=== PATIENT | female | born 1965 | race Caucasian/White ===

== ENCOUNTER 2020-03-15 09:46 | Outpatient (RCR) | payer MEDICARE, SELFPAY | END 2020-03-25 23:59 | disposition home or self-care (01) | LOC: SPT 09:46 | PROVIDERS: Referring Provider Nurse Practitioner Family; Visit Provider Nurse Practitioner Family | DX: Z47.1 Aftercare following joint replacement surgery (principal); Z96.651 Presence of right artificial knee joint | CPT/HCPCS: 97161 ==

== ENCOUNTER 2020-04-11 16:13 | Emergency (ER) | payer MEDICARE, SELFPAY ==
[2020-04-11 16:14] VITALS: BMI 29.7
[2020-04-11 16:20] VITALS: BP 142/92; PULSE 70; RESP 16; TEMP 36.6; O2SAT 96
--- NOTE | 2020-04-11 16:30 | W.ED.EXTPRO ---
HPI - Extremity Problem General: Chief complaint: Extremity Problem,Nontraumatic Stated complaint: SWELLING EDEMA LEFT LEG Time Seen by Provider: 04/11/20 16:24 History of Present Illness: HPI Narrative: 55-year-old female presents to the emergency room with complaint of leg swelling and pain in her left leg she did get a small abrasion on the leg that she has been keeping bandaged for a last several days that her tetanus is up-to-date is been putting some topical Neosporin on it. She states most of the pain is in her posterior calf and swelling she has had no significant recent immobilizations of any kind she is not had any chest pain tightness or shortness of breath. MD Complaint: extremity pain and extremity swelling Onset (ago): day(s) Pain Consistency: constant Location: left and lower extremity Quality: aching Radiation: none Relieving factors: nothing Exacerbating factors: nothing Associated symptoms: Reports no associated symptoms; Deny chest pain, fever(s), rash or short of breath Review of Systems Const: Denies: fever(s), chills, body aches, change in appetite, fatigue or malaise ENMT: Denies: throat pain, ear or mastoid pain, nasal discharge or nasal congestion Card: Denies: chest pain Resp: Denies: dyspnea, productive cough or non-productive cough GI: Denies: abdominal pain, nausea, vomiting, hematemesis, coffee ground emesis, diarrhea, constipation, bloating, hematochezia or melena : Denies: flank pain, difficulty voiding, dysuria, urinary frequency or urinary urgency Skin/Breast: Denies: rash or pruritus PFSH ED PFSH: Medical History Gastric perforation Hidradenitis suppurativa History of pacemaker Hypothyroidism Surgical History History of cardiac radiofrequency ablation 7x History of carpal tunnel release of both wrists History of colonoscopy History of decompression of both ulnar nerves History of esophagogastroduodenoscopy (EGD) History of gastric bypass History of hysterectomy History of knee replacement History of knee surgery 5 surgeries History of removal of cyst 3x on wrist History of tonsillectomy Family History Denies family history of Anesthesia complication Bleeding disorder Social History Smoking and tobacco status: former smoker Alcohol intake: current Alcohol intake frequency: holidays/special occasions only Alcohol type: wine Lives independently: Yes Marital status: Single Current occupational status: disabled History of recent travel: No Physical Exam Const: COMMON NORMALS: no acute distress GENERAL APPEARANCE: cooperative and comfortable ORIENTATION/CONSCIOUSNESS: Yes awake, Yes oriented to person, Yes oriented to place and Yes oriented to time HENMT: COMMON NORMALS: normocephalic, atraumatic, hearing grossly normal bilaterally and external ears normal HEAD & SCALP: normocephalic and atraumatic EXTERNAL EAR: Yes external ears normal Neck/C-Spine: COMMON NORMALS: full ROM Lymph: LYMPHATIC: no lymphadenopathy noted Resp: COMMON NORMALS: normal respiratory effort, No retractions, No use of accessory muscles and clear to auscultation bilaterally AUSCULTATION: clear to auscultation bilaterally Cardio: COMMON NORMALS: regular rate, regular rhythm and No murmurs present (Cardio) RATE: regular rate RHYTHM: regular rhythm GI: COMMON NORMALS: Soft to palpation and No hepatosplenomegaly present AUSCULTATION: Yes normoactive bowel sounds PALPATION: Yes Soft to palpation, No Tenderness to palpation present (GI), No Guarding due to palpation present (GI) and Yes No hepatosplenomegaly present Extremity: COMMON NORMALS: normal to inspection, capillary refill normal, no clubbing, cyanosis or edema and no calf tenderness NARRATIVE EXTREMITY EXAM: trace edema L lower extremity Neuro: SENSORIUM/ORIENTATION: Yes oriented to person, Yes oriented to place and Yes oriented to time Skin: COMMON NORMALS: no rashes or lesions noted GENERAL SKIN EXAM: no rashes or lesions noted Course Vital Signs: Vital signs: Vital Signs Temperature 97.8 F 04/11/20 16:20 Pulse Rate 69 04/11/20 18:30 Respiratory Rate 18 04/11/20 18:30 Blood Pressure 129/89 04/11/20 18:30 Pulse Oximetry 97 04/11/20 18:30 MDM - Extremity (Nontraumatic) MDM Narrative: Medical decision making narrative: Reviewed findings with the patient will discharge home with clindamycin she does have a few small abrasions on her leg follow-up with primary care doctor return if she has further problems reviewed the venous duplex which was negative. Discharge Plan Discharge Patient Disposition: Home, Self-Care Clinical Impression: Lower extremity edema, Lower leg pain Condition: Stable Prescriptions: New clindamycin HCl 300 mg capsule 300 mg PO Q6H 7 Days Qty: 28 RF: 0 No Action gabapentin 300 mg capsule 300 mg PO Q4H RF: 0 hydroxyzine pamoate 50 mg capsule 50 mg PO Q4H PRN (Reason: Anxiety) RF: 0 levothyroxine 75 mcg tablet 50 mcg PO DAILY RF: 0 cholecalciferol (vitamin D3) [Vitamin D3] 125 mcg (5,000 unit) tablet 125 mcg PO DAILY RF: 0 multivitamin [Daily Multi-Vitamin] Tablet 1 tab PO DAILY RF: 0 aspirin 81 mg tablet,delayed release (DR/EC) 81 mg PO BID RF: 0 clindamycin phosphate 1 % swab 1 applic TOPICAL DAILY Qty: 60 RF: 3 diazepam 10 mg Tablet 10 mg PO BID PRN (Reason: Anxiety) RF: 0 Discharge Orders: Discharge Order (Routine); Ordered 04/11/20 Ordered By: Anil Hackett Discharge Diet: Usual diet Discharge Activity: Resume usual activity Activity Restrictions/Additional Instructions: Follow-up with your doctor if symptoms worsen Discharge Date/Time: 04/11/20 18:31 Coding Level of Care 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
--- NOTE | 2020-04-11 16:56 | USCV_ITS ---
[place], [place] Age: 55 Gender: F : 1965 Exam Date: 04/11/2020 17:08 Ordering Phys: Anil Hackett DO Technologist: Mariana Spear Exam Location: [facility] – [place] Indication: LT LEG PAIN AND EDEMA HISTORY: Lower extremity pain. PROCEDURES: Venous duplex imaging was performed in only the left lower extremity. The following venous structures were evaluated: common femoral vein, profunda vein, proximal portion of the greater saphenous vein, superficial femoral vein, and the popliteal vein. In addition, the posterior tibial and peroneal trunk were evaluated. On the left side, the common femoral, superficial femoral, profunda femoral, popliteal, posterior tibial, greater saphenous veins, and the peroneal trunk were identified and interrogated in the standard fashion. These veins were found to be easily compressible with spontaneous blood flow. No evidence of insufficiency or thrombus noted. FINDINGS: Normal 2-D Doppler and augmentation and compressibility throughout the lower extremity venous structures. Additional imaging through the proximal calf veins also reveals no thrombus. Limited evaluation of the greater saphenous vein is patent with no thrombus.. The veins were found to be easily compressible with spontaneous blood flow. Non pulsatile flow pattern. CONCLUSIONS No evidence of DVT in the above-mentioned identifiable veins. Dr Zulema Ruiz MD [facility] (Electronically Signed) Final Date: 12 April 2020 09:03 S
[2020-04-11 18:30] VITALS: BP 129/89; PULSE 69; RESP 18; O2SAT 97
== END 2020-04-11 18:31 | disposition home or self-care (01) ==
PROVIDERS: Emergency Provider Family Medicine
DX: R60.0 Localized edema (principal); M79.662 Pain in left lower leg; Z79.82 Long term (current) use of aspirin; Z95.0 Presence of cardiac pacemaker; Z96.659 Presence of unspecified artificial knee joint; Z87.891 Personal history of nicotine dependence
CPT/HCPCS: 12345; 93971; 99281; 99282

== ENCOUNTER 2020-04-24 07:54 | Day surgery (SDC) | payer MEDICARE, SELFPAY ==
[2020-03-30 12:33] VITALS: BMI 29.7
[2020-04-23 12:32] VITALS: BMI 29.7
[2020-04-24 08:09] VITALS: BP 138/95; PULSE 78; RESP 18; TEMP 36.6; O2SAT 99
[2020-04-24] MEDS: sodium chloride 0.9% 1,000 ML 30 ML IV (08:24)
--- NOTE | 2020-04-24 08:25 | ANES.PREANE2 ---
Pre-Anesthetic Assessment Pre-Anesthetic Assessment: Height/Weight: Height 1.73 m Weight 88.904 kg Temp Pulse Resp BP Pulse Ox 97.9 F 78 18 138/95 99 04/24/20 08:09 04/24/20 08:09 04/24/20 08:09 04/24/20 08:09 04/24/20 08:09 Preop Diagnosis: Abdominal pain Proposed Procedure: Operation Date: 04/24/20 09:15 Proposed Procedures s EGD 88733 51681 R10.9(Not Applicable) - Sinan Duenas MD p Colonoscopy 07742 R10.9(Not Applicable) - Sinan Duenas MD Familial anesthetic complications: None Was Beta Rohan taken within 24 hours: N/A Last intake: Intake Last Liquid Date 04/23/20 Last Liquid Time 22:00 Last Solid Date 04/22/20 Last Solid Time 18:00 Social: Social History: No alcohol and No tobacco Exam: Pre-Anes Outpt Exam: alert, oriented x 3, clear to auscultation bilaterally and regular rate & rhythm Airway: Cervical ROM: WNL MP: 4 Additional comments: front 2 are caps Pulmonary: Pulmonary: Asthma CV/HEM: Comments: pacemaker (PSVT); multiple ablations 100% dependent on her pacemaker, 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- Will have magnet applied if any electrocautery used : : None reported Hepatic: Hepatic: None reported GI: GI: None reported Metabolic: Metabolic: Thyroid Musc/skel: Musc/skel: None reported Neuropsych: Neuropsych: None reported Anesthetic Plan: ASA status: 3 Anesthesia: MAC Risk of > 500 ml blood loss (7ml/kg in children): No Meds/Allergies Current Medications: Current Medications Generic Name Dose Route Start Last Admin Trade Name Freq PRN Reason Stop Dose Admin Sodium Chloride 1,000 mls @ 30 ml s/hr 04/24/20 08:15 04/24/20 08:24 Sodium Chloride 0.9% IV 04/25/20 08:14 30 mls/hr .Q24H DEBORA Administration PFSH Anesthesia PFSH: Medical History (Updated 04/19/20 @ 00:01 by ) Gastric perforation Hidradenitis suppurativa History of pacemaker Hypothyroidism Surgical History History of cardiac radiofrequency ablation 7x History of carpal tunnel release of both wrists History of colonoscopy History of decompression of both ulnar nerves History of esophagogastroduodenoscopy (EGD) History of gastric bypass History of hysterectomy History of knee replacement History of knee surgery 5 surgeries History of removal of cyst 3x on wrist History of tonsillectomy Family History Denies family history of Anesthesia complication Bleeding disorder Social History Smoking and tobacco status: former smoker Alcohol intake: current Alcohol intake frequency: holidays/special occasions only Alcohol type: wine Lives independently: Yes Marital status: Single Current occupational status: disabled History of recent travel: No Data Anesthesia Cardiac Studies: No Data to Display
--- NOTE | 2020-04-24 09:44 | W.PM.OPSUD ---
Surgery/Procedure H&P Update DATE OF PROCEDURE: April 24, 2020 DATE H&P PERFORMED: 04/06/20 H&P UPDATE INFORMATION: I have reviewed H&P completed within last 30 days, I have examined patient prior to procedure and No changes to prior documentation PREOP DIAGNOSIS: Abdominal pain PLANNED PROCEDURE: Operation Date: 04/24/20 09:15 Proposed Procedures s EGD 26838 48045 R10.9(Not Applicable) - Sinan Duenas MD p Colonoscopy 04179 R10.9(Not Applicable) - Sinan Duenas MD
[2020-04-24 09:56] VITALS: BP 103/66; PULSE 72; RESP 16; TEMP 36.1; O2SAT 97
[2020-04-24 10:01] VITALS: BP 100/65; PULSE 78; RESP 17; TEMP 36.2; O2SAT 100
--- NOTE | 2020-04-24 10:05 | ANE.PACU2 ---
Inpatient post-anesthesia follow up: Airway intact: Yes Vital signs: Temperature 97.1 F Pulse Rate 78 Respiratory Rate 17 Blood Pressure 100/65 Pulse Oximetry 100 Oxygen Delivery Me thod Room Air Oxygen Flow Rate Fraction of Inspir ed Oxygen Hydration adequate: Yes Nausea and vomiting: No Pain level: 1 Mental status: Baseline
== END 2020-04-24 10:42 | disposition home or self-care (01) ==
PROVIDERS: PCP Family Medicine; Visit Provider Surgery
PROC: 0DJ08ZZ Inspection of Upper Intestinal Tract, Via Natural or Artificial Opening Endoscopic (ICD-10-PCS; CPT 43235; principal; 2020-04-24 09:15)
PROC: 0DJD8ZZ Inspection of Lower Intestinal Tract, Via Natural or Artificial Opening Endoscopic (ICD-10-PCS; CPT 45378; 2020-04-24 09:15)
DX: R10.13 Epigastric pain (principal); Z98.84 Bariatric surgery status; Z95.0 Presence of cardiac pacemaker; J45.909 Unspecified asthma, uncomplicated; E03.9 Hypothyroidism, unspecified; Z87.891 Personal history of nicotine dependence; Z79.82 Long term (current) use of aspirin
CPT/HCPCS: 12345; 43235; 45330; J2704; J7030

== ENCOUNTER 2020-04-25 09:09 | Day surgery (SDC) | payer MEDICARE, SELFPAY ==
[2020-04-24 11:07] VITALS: BMI 29.7
[2020-04-25 09:24] VITALS: BP 151/92; PULSE 69; RESP 18; TEMP 36.2; O2SAT 100
--- NOTE | 2020-04-25 09:33 | P.ANESUD_ITS ---
Pre-Anesthetic Update Pre-Anesthetic Assessment: Date of Surgery/Procedure: 04/25/20 Preop Ashia gnosis: Abdominal pain Proposed Procedure: Operation Date: 04/25/20 10:30 Proposed Procedures p Colonoscopy/99961 R10.9(Not Applicable) - Sinan Duenas MD Any changes to Pre-Anesthetic Assessment?: Yes Last Intake: npo > 8 hrs Exam: Pre-Anes Outpt Exam: alert, oriented x 3, clear to auscultation bilaterally and regular rate & rhythm Cardiac Studies: No Data to Display
[2020-04-25] MEDS: sodium chloride 0.9% 1,000 ML 30 ML IV (09:57)
--- NOTE | 2020-04-25 10:01 | W.PM.OPSUD ---
Surgery/Procedure H&P Update DATE OF PROCEDURE: April 25, 2020 DATE H&P PERFORMED: 04/24/20 H&P UPDATE INFORMATION: I have reviewed H&P completed within last 30 days, I have examined patient prior to procedure and No changes to prior documentation PREOP DIAGNOSIS: Abdominal pain PLANNED PROCEDURE: Operation Date: 04/25/20 10:30 Proposed Procedures p Colonoscopy/15104 R10.9(Not Applicable) - Sinan Duenas MD
[2020-04-25] MEDS: Fleet Enema 133 mL Enema PR (10:50)
[2020-04-25 11:55] VITALS: BP 115/64; PULSE 73; RESP 16; TEMP 36.3; O2SAT 100
--- NOTE | 2020-04-25 12:08 | ANE.PACU2 ---
Inpatient post-anesthesia follow up: Airway intact: Yes Vital signs: Temperature 97.4 F Pulse Rate 73 Respiratory Rate 16 Blood Pressure 115/64 Pulse Oximetry 100 Oxygen Delivery Me thod Nasal Cannula Oxygen Flow Rate 3 Fraction of Inspir ed Oxygen Hydration adequate: Yes Nausea and vomiting: No Mental status: Baseline
[2020-04-25 12:09] VITALS: BP 106/60; PULSE 72; RESP 18; O2SAT 98
== END 2020-04-25 12:25 | disposition home or self-care (01) ==
PROVIDERS: PCP Family Medicine; Visit Provider Surgery
PROC: 0DJD8ZZ Inspection of Lower Intestinal Tract, Via Natural or Artificial Opening Endoscopic (ICD-10-PCS; CPT 45378; principal; 2020-04-25 10:30)
DX: R10.9 Unspecified abdominal pain (principal); K64.8 Other hemorrhoids
CPT/HCPCS: 12345; 45378; G0121; J2704; J7030

== ENCOUNTER 2020-05-25 10:02 | Outpatient (CLI) | payer MEDICARE, SELFPAY ==
--- NOTE | 2020-05-25 10:17 | US_ITS ---
WS: [id number] INDICATION: Calf pain TECHNIQUE: Ultrasound soft tissue FINDINGS: Diffuse edema in the area of concern right calf. No cystic or solid lesions. No drainable f luid collections or abscess. US/US soft tissue/extremity [id number] IMPRESSION: No fluid collection or abscess
== END 2020-05-25 10:03 | disposition home or self-care (01) ==
LOC: US 10:03
PROVIDERS: Visit Provider Surgery
DX: M79.661 Pain in right lower leg (principal); R60.0 Localized edema
CPT/HCPCS: 76882

== ENCOUNTER 2020-07-22 08:05 | Emergency (ER) | payer MEDICARE, SELFPAY ==
[2020-07-22 08:06] VITALS: BP 130/93; PULSE 81; RESP 18; O2SAT 95
[2020-07-22 08:12] VITALS: BP 147/81; PULSE 82; RESP 16; TEMP 36.7; O2SAT 97; BMI 30.1
--- NOTE | 2020-07-22 08:29 | PC.NURSE ---
Noted bruising behind right ear, right hand and wrist. states the wounds on right elbow are from walking past a door and caught arm on door frame. Onset on Thursday around 1600
--- NOTE | 2020-07-22 08:35 | CTR_ITS ---
PROCEDURE INFORMATION: Exam: CT Head Without Contrast Exam date and time: 07/22/2020 8:44 AM Age: 55 years old Clinical indication: Injury or trauma; Fall; Initial encounter; Blunt trauma (contusions or hematomas); Additional info: Fall, bruising right mastoid TECHNIQUE: Imaging protocol: Computed tomography of the head without contrast. Radiation optimization: All CT scans at this facility use at least one of these dose optimization techniques: automated exposure control; mA and/or kV adjustment per patient size (includes targeted exams where dose is matched to clinical indication); or iterative reconstruction. COMPARISON: No relevant prior studies available. RADIATION DOSE METRICS: Total DLP (mGy-cm): 760.09 FINDINGS: Brain: No acute post-traumatic brain injury. Symmetric prominence of the cortical and cerebellar sulci. Mild small vessel ischemic change. Cerebral ventricles: Normal configuration of the ventricles. Bones/joints: No acute calvarial injury. Paranasal sinuses: No sinus fluid. Mastoid air cells: No mastoid effusion. Soft tissues: Right occipital scalp hematoma. CT/CT head wo con* [id number] IMPRESSION: 1. Right occipital scalp hematoma. 2. No acute post-traumatic brain injury. Radiation Dose CTDIVOL = (mGy): DLP = 760.09 (mGy-cm)
--- NOTE | 2020-07-22 08:36 | CTR_ITS ---
PROCEDURE INFORMATION: Exam: CT Thoracic Spine Without Contrast Exam date and time: 07/22/2020 8:44 AM Age: 55 years old Clinical indication: Injury or trauma; Fall; Initial encounter; Blunt trauma (contusions or hematomas); Injury date: 07/21/20; Additional info: Fall, pain TECHNIQUE: Imaging protocol: Computed tomography images of the thoracic spine without contrast. Radiation optimization: All CT scans at this facility use at least one of these dose optimization techniques: automated exposure control; mA and/or kV adjustment per patient size (includes targeted exams where dose is matched to clinical indication); or iterative reconstruction. COMPARISON: No relevant prior studies available. RADIATION DOSE METRICS: Total DLP (mGy-cm): 2191.51 FINDINGS: The examination performed is mildly degraded by motion artifact. Tubes, catheters and devices: Pacemaker. Vertebrae: No acute bony injury or malalignment in the thoracic spine. Intraosseous hemangioma in the T9 vertebral body. Discs/Spinal canal/Neural foramina: Mild degenerative change . Soft tissues: Unremarkable appearance of the paraspinous soft tissues. Lungs: Interstitial prominence and chronic granulomatous disease. CT/CT thoracic spin wo con* [id number] IMPRESSION: 1. No acute bony injury or malalignment in the thoracic spine. 2. Additional findings as described above. Radiation Dose CTDIVOL = (mGy): DLP = 2191.51 (mGy-cm)
--- NOTE | 2020-07-22 08:36 | CTR_ITS ---
PROCEDURE INFORMATION: Exam: CT Lumbar Spine Without Contrast Exam date and time: 07/22/2020 8:44 AM Age: 55 years old Clinical indication: Injury or trauma; Fall; Initial encounter; Blunt trauma (contusions or hematomas); Injury date: 07/21/20; Additional info: Fall, pain TECHNIQUE: Imaging protocol: Computed tomography images of the lumbar spine without contrast. Radiation optimization: All CT scans at this facility use at least one of these dose optimization techniques: automated exposure control; mA and/or kV adjustment per patient size (includes targeted exams where dose is matched to clinical indication); or iterative reconstruction. COMPARISON: No relevant prior studies available. RADIATION DOSE METRICS: Total DLP (mGy-cm): 2185.47 FINDINGS: Vertebrae: Acute L1 compression fracture, without retropulsion. Intraosseous hemangiomas in the L2 and L5 vertebral bodies. Discs/Spinal canal/Neural foramina: Disc bulging and mild degenerative change. Soft tissues: unremarkable appearance of the paraspinous soft tissues. CT/CT lumbar spine wo con* [id number] IMPRESSION: Acute L1 compression fracture, without retropulsion. Radiation Dose CTDIVOL = (mGy): DLP = 2185.47 (mGy-cm)
--- NOTE | 2020-07-22 08:37 | W.ED.FALL ---
HPI - Fall General: Chief Complaint: Fall Stated Complaint: fall Time Seen by Provider: 07/22/20 08:29 History of Present Illness: HPI Narrative: Patient complains of a headache and scalp pain behind the right ear from a fall that happened on Thursday night. She fell off a barstool had positive loss of consciousness up to 5 minutes she said. She denies alcohol was involved. Patient also complains about lower back to mid thoracic pain. Says it hurts to bend twist get off a chair sitting in chair just hurts all the time separately and still. She denies any neurological manifestations presently. Denies any nausea and vomiting complaint: fall Onset (ago): day(s) Fall from: chair Fall witnessed: yes, by bystander Place fall occurred: other (Bar) Loss of consciousness: Minutes (5) Length of LOC: minutes(s) (5 she claims) Symptoms prior to fall: none Context: tripped/slipped Location of injury: head and back Severity scale (1-10): 4 Quality: aching Associated symptoms-after fall: Reports no associated symptoms and headache(s); Denies abdominal pain or chest pain Review of Systems Const: Denies: fever(s), chills or body aches Eyes: Denies: change in vision or blurry vision ENMT: Denies: throat pain or nasal congestion Card: Denies: chest pain or dyspnea on exertion Resp: Denies: dyspnea, productive cough or non-productive cough GI: Denies: abdominal pain, nausea or vomiting Musc: Reports: back pain (Patient complains about low back pain midthoracic pain with movement); Denies: extremity pain Skin/Breast: Reports: other (Bruising behind the ear right side says is very sore in that area); Denies: rash Neuro: Reports: headache(s) Psych: Denies: anxiety or depression Tj/Lymph: Denies: easy bruising PFS ED PFSH: Medical History (Updated 07/22/20 @ 10:12 by ROBBI Medina) Gastric perforation Gastritis Hidradenitis suppurativa History of pacemaker Hypothyroidism Surgical History History of cardiac radiofrequency ablation 7x History of carpal tunnel release of both wrists History of colonoscopy History of decompression of both ulnar nerves History of esophagogastroduodenoscopy (EGD) (04/24/20) History of gastric bypass History of hysterectomy History of knee replacement History of knee surgery 5 surgeries History of removal of cyst 3x on wrist History of tonsillectomy Status post colonoscopy (04/25/20) normal, repeat in 10 years Family History Denies family history of Anesthesia complication Bleeding disorder Social History Smoking and tobacco status: former smoker Alcohol intake: current Alcohol intake frequency: holidays/special occasions only Alcohol type: wine Lives independently: Yes Marital status: Single Current occupational status: disabled History of recent travel: No Physical Exam Const: COMMON NORMALS: no acute distress, average body habitus and patient oriented x3 HENMT: COMMON NORMALS: normocephalic and TM's normal bilaterally HEAD & SCALP: normal to inspection and normocephalic FACE & SINUS: normal facial exam TYMPANIC MEMBRANE: TM's normal bilaterally Eye: COMMON NORMALS: conjunctivae normal GENERAL EYE: appearance normal, both eyes and all related structures CONJUNCTIVA: Yes conjunctivae normal Neck/C-Spine: COMMON NORMALS: no JVD Chest: COMMONS NORMALS: normal inspection of the chest Resp: COMMON NORMALS: normal respiratory effort and clear to auscultation bilaterally AUSCULTATION: clear to auscultation bilaterally Cardio: COMMON NORMALS: no JVD, regular rate and regular rhythm RATE: regular rate RHYTHM: regular rhythm GI: COMMON NORMALS: Normal to inspection, nondistended, normoactive bowel sounds present Back/Pelvis: THORACIC SPINE/UPPER BACK: Yes pain with ROM and Yes thoracic spinal tenderness LUMBAR SPINE/LOWER BACK: Yes pain with ROM and Yes lumbar spinal tenderness Extremity: COMMON NORMALS: normal to inspection and full ROM Neuro: COMMON NORMALS: patient oriented x3 and CN's II-XII intact bilaterally Skin: OTHER: Tenderness behind the right ear with a large amount of bruising Course Vital Signs: Vital signs: Vital Signs Temperature 98.7 F 07/22/20 10:41 Pulse Rate 81 07/22/20 10:41 Respiratory Rate 18 07/22/20 10:41 Blood Pressure 160/108 07/22/20 10:41 Pulse Oximetry 97 07/22/20 10:41 MDM - Fall MDM Narrative: Medical decision making narrative: Discussed need to wear the brace. Patient can only take Demerol as far as pain medication due to allergies. Patient will follow-up [facility] to discuss treatment she did request some muscle relaxer to help with pain. Discharge Plan Discharge Patient Disposition: Home Clinical Impression: Compression fracture of lumbar vertebra Qualifiers: Encounter type: initial encounter Lumbar vertebra fracture level: L1 Qualified Code(s): S32.010A - Wedge compression fracture of first lumbar vertebra, initial encounter for closed fracture Hematoma of right parietal scalp Qualifiers: Encounter type: initial encounter Qualified Code(s): S00.03XA - Contusion of scalp, initial encounter Condition: Stable Prescriptions: New cyclobenzaprine 10 mg tablet 10 mg PO TID PRN (Reason: muscle spasm) Qty: 20 RF: 0 No Action gabapentin 300 mg capsule 300 mg PO Q4H RF: 0 hydroxyzine pamoate 50 mg capsule 50 mg PO Q4H PRN (Reason: Anxiety) RF: 0 levothyroxine 75 mcg tablet 50 mcg PO DAILY RF: 0 cholecalciferol (vitamin D3) [Vitamin D3] 125 mcg (5,000 unit) tablet 125 mcg PO DAILY RF: 0 multivitamin [Daily Multi-Vitamin] Tablet 1 tab PO DAILY RF: 0 aspirin 81 mg tablet,delayed release (DR/EC) 81 mg PO BID RF: 0 clindamycin phosphate 1 % swab 1 applic TOPICAL DAILY Qty: 60 RF: 3 famotidine 20 mg tablet 20 mg PO BID 90 Days Qty: 180 RF: 0 clindamycin phosphate [Cleocin T] 1 % gel 1 applic TOPICAL DAILY 30 Days Qty: 30 RF: 0 diazepam 10 mg Tablet 10 mg PO BID PRN (Reason: Anxiety) RF: 0 Discharge Orders: Discharge Order (Routine); Ordered 07/22/20 Ordered By: Bony Castorena Discharge Diet: Usual diet Discharge Activity: Limit activity as instructed Patient Instructions: Vertebral Compression Fracture (ED) Activity Restrictions/Additional Instructions: Follow-up with medical provider as directed. Take medications as prescribed. Return to the ER or your medical provider if condition worsens. Please read and understand discharge instructions. If any questions ask please. Wear brace until follow-up with [facility] should be contacting you with appointment for them. 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
[2020-07-22 09:10] VITALS: BP 144/96; PULSE 73; RESP 18; O2SAT 97
[2020-07-22 10:41] VITALS: BP 160/108; PULSE 81; RESP 18; TEMP 37.1; O2SAT 97
--- NOTE | 2020-07-24 09:46 | DCPLANNER ---
aerial planting and cultivation manager had message to refer patient to [facility] in [place]. aerial planting and cultivation manager faxed patients information to the clinic. aerial planting and cultivation manager will call for appointment information.
--- NOTE | 2020-07-26 11:36 | DCPLANNER ---
manager music called [facility] was told that clinic did receive referral and the clinic is working on it.
--- NOTE | 2020-08-01 13:18 | DCPLANNER ---
Patient has a follow up appointment scheduled for July at 10:[address] Rojas. Patient is aware of appointment.
--- NOTE | 2020-08-23 10:55 | DCPLANNER ---
Patient had an appointment scheduled for 08.09.[address] Rojas - appointment was cancelled.
== END 2020-07-22 10:45 | disposition home or self-care (01) ==
PROVIDERS: Emergency Provider Nurse Practitioner Family
DX: S00.03XA Contusion of scalp, initial encounter (principal); S32.010A Wedge compression fracture of first lumbar vertebra, initial encounter for closed fracture; Z79.82 Long term (current) use of aspirin; Z95.0 Presence of cardiac pacemaker; Z87.891 Personal history of nicotine dependence; W07.XXXA Fall from chair, initial encounter
CPT/HCPCS: 12345; 70450; 72128; 72131; 97760; 99281; 99283; L0460

== ENCOUNTER 2021-01-10 13:52 | Outpatient (CLI) | payer MEDICARE, SELFPAY ==
--- NOTE | 2021-01-10 14:00 | MM_ITS ---
WS: [id number] BILATERAL DIGITAL SCREENING MAMMOGRAPHY WITH CAD CLINICAL INFORMATION: SCREENING HISTORY: Screening mammogram. No current complaints. COMPARISON: October 14, 2017 TECHNIQUE: Bilateral CC and MLO views. FINDINGS: Scattered fibroglandular densities bilaterally. Ovoid asymmetric density subareolar left breast best seen on the cc view. This is new from previous. Recommend left breast diagnostic mammography and ultr asound. Right breast is unremarkable and unchanged. MM/[place] [id number] IMPRESSION: BI-RADS: 0-Incomplete: Need additional imaging evaluation FOLLOW UP: Need Additional Imaging RECOMMEND LEFT BREAST DIAGNOSTIC MAMMOGRAPHY AND ULTRASOUND..
== END 2021-01-10 13:53 | disposition home or self-care (01) ==
LOC: RADSHAW 13:54
PROVIDERS: PCP Nurse Practitioner Family; Visit Provider Nurse Practitioner Family
DX: Z12.31 Encounter for screening mammogram for malignant neoplasm of breast (principal); N64.89 Other specified disorders of breast
CPT/HCPCS: 77067

== ENCOUNTER 2021-01-30 14:22 | Outpatient (CLI) | payer MEDICARE, SELFPAY ==
--- NOTE | 2021-01-30 14:30 | US_ITS ---
WS: [id number] LEFT DIGITAL MAMMOGRAPHY WITH CAD CLINICAL INFORMATION: ABNORMAL MAMMOGRAM COMPARISON: January 10, 2021 TECHNIQUE: 2 views of the left breast were obtained. FINDINGS: Scattered fibroglandular densities of the left breast. Previously described 9 millimeter subareolar d ensity not as well seen on today's study. Ultrasound is pending. ULTRASOUND BREAST LEFT TECHNIQUE: Ultrasound left breast focused area of concern. CLINICAL INFORMATION: ABNORMAL MAMMOGRAM COMPARISON: None. FINDINGS: Ultrasound left breast at the nipple. Mild ductal ectasia. No suspicious lesions. No cystic or solid lesions to target for biopsy. Recommend return to annual screening mammography. US/US breast LT limited* [id number] IMPRESSION: BI-RADS: 2-Benign FOLLOW UP: 1 Year Follow-up Recommend return to annual screening mammography.
== END 2021-01-30 14:23 | disposition home or self-care (01) ==
LOC: RADSHAW 14:27
PROVIDERS: PCP Nurse Practitioner Family; Visit Provider Nurse Practitioner Family
DX: R92.8 Other abnormal and inconclusive findings on diagnostic imaging of breast (principal); N60.42 Mammary duct ectasia of left breast
CPT/HCPCS: 76642; 77065

== ENCOUNTER → 2021-10-21 13:48 | Outpatient (BNVA) | payer MEDICARE, SELFPAY | PROVIDERS: PCP Nurse Practitioner Family; Visit Provider Nurse Practitioner Family | DX: Z20.822 Contact with and (suspected) exposure to COVID-19 (principal); J06.9 Acute upper respiratory infection, unspecified | CPT/HCPCS: 87635 ==

== ENCOUNTER 2022-06-24 11:19 | Emergency (ER) | payer MEDICARE, SELFPAY ==
[2022-06-24 11:33] VITALS: BP 113/79; PULSE 90; RESP 16; TEMP 36.6; O2SAT 100; BMI 25.5
[2022-06-24 13:39] LABS: Basophils # 0.1 10^3/uL (0.0-0.1); Basophils % 0.5 %; Eosinophils # 0.1 10^3/uL (0.0-0.8); Eosinophils % 1.4 %; Hematocrit 41.3 % (37.0-47.0); Hemoglobin 13.6 g/dL (11.5-15.3); Lymphocytes # 1.6 10^3/uL (0.8-4.8); Mean Corpuscular HGB Conc 32.9 g/dL (30.0-36.0); Mean Corpuscular Hemoglobin 35.1 pg (28.0-34.0); Mean Corpuscular Volume 106.7 fl (81-99); Mean Platelet Volume 11.3 fL (7.4-10.4); Monocytes # 0.6 10^3/uL (0.2-0.9); Monocytes % 6.2 %; Neutrophils # 6.93 10^3/uL (1.8-7.7); Neutrophils % 74.5 %; Nucleated Red Blood Cells % 0 %; Platelet Count 100 10^3/cmm (130-400); Red Blood Count 3.87 10^6/uL (4.1-5.3); Red Cell Distribution Width 13.1 % (12.1-15.1); White Blood Count 9.3 10^3/uL (4.0-10.0)
[2022-06-24 13:58] LABS: Alanine Aminotransferase 33 U/L (0-33); Alkaline Phosphatase 149 U/L (35-105); Anion Gap 12.7 (5-19); Aspartate Amino Transferase 52 U/L (0-32); Blood Urea Nitrogen 4 mg/dL (6-20); Calcium 8.3 mg/dL (8.5-10.5); Carbon Dioxide 25 mmol/L (22-29); Chloride 103 mmol/L (98-107); Globulin 3.1 g/dL (1.3-4.6); Glomerular Filtration Rate 74.2 mL/min (90-130); Glucose 90 mg/dL (65-115); Lipase 10 U/L (13-60); Osmolality Calculated 280 mOsm/kg (285-295); Potassium 3.7 mmol/L (3.5-5.1); Sodium 137 mmol/L (136-145); Total Bilirubin 0.8 mg/dL (0.15-1.2); Total Protein 6.1 g/dL (6.6-8.7)
[2022-06-24] MEDS: ondansetron 2 mg/ML SDV 2 mL 4 MG IVP (14:01)
[2022-06-24] MEDS: sodium chloride 0.9% 1,000 ML 999 ML IV ×2 (14:03→16:00)
--- NOTE | 2022-06-24 14:06 | ED_ITS ---
HPI - Nausea/Vomiting/Diarrhea General: Chief complaint: Nausea/Vomiting/Diarrhea Stated complaint: N/V/D/weakness Time Seen by Provider: 06/24/22 13:31 Source: patient Mode of arrival: EMS History of Present Illness: 57-year-old female presents emergency room with complaints of nausea vomiting and generalized weakness that began this morning. Patient has had similar symptoms in the past she is. He had a gastric bypass. She also recently was diagnosed with a DVT and was started on Xarelto she stopped taking it because it caused her to have some bloody vomitus she stopped it a few days ago has not told the primary care doctor about it. The episode of bloody vomitus was early on in the course of the Xarelto over a month ago. She denies any chest pain is complaining some vague abdominal pain but nothing specific denies dysuria urgency or frequency no hematochezia or melena no coffee-ground emesis she has not had any bloody emesis today. She denies any dysuria urgency frequency or hematuria. MD elicited complaint: nausea and vomiting Pertinent past history: abdominal surgery (Gastric bypass) Onset (ago): hour(s) Description of vomiting: food contents and bilious Associated nausea: Yes Severity: mild Quality: cramping Exacerbating factors: none Relieving factors: none Associated symtoms: Reports nausea; Denies altered mental status, anxiety, bloating, change in vision, chest pain, cough, diaphoresis, decreased urine output, dizziness, dysuria, epistaxis, fatigue, fecal incontinence, fevers/chills, headache(s), anorexia, malaise, myalgias, numbness, palpitations, rash, short of breath, syncope, tenesmus, tinnitus or weakness Review of Systems Const: Denies: fever(s), chills, fatigue, malaise or diaphoresis Eyes: Denies: change in vision ENMT: Denies: tinnitus or epistaxis Card: Denies: chest pain, palpitations or syncope Resp: Denies: dyspnea, productive cough or non-productive cough GI: Reports: abdominal pain, nausea and vomiting; Denies: bloating or fecal incontinence : Denies: dysuria Skin/Breast: Denies: rash or pruritus Neuro: Denies: headache(s) or dizziness Psych: Denies: anxiety PFSH ED PFSH: Medical History Gastric perforation Gastritis Hidradenitis suppurativa History of pacemaker Hypothyroidism Surgical History History of cardiac radiofrequency ablation 7x History of carpal tunnel release of both wrists History of colonoscopy History of decompression of both ulnar nerves History of esophagogastroduodenoscopy (EGD) (04/24/20) History of gastric bypass History of hysterectomy History of knee replacement History of knee surgery 5 surgeries History of removal of cyst 3x on wrist History of tonsillectomy Status post colonoscopy (04/25/20) normal, repeat in 10 years Family History Denies family history of Anesthesia complication Bleeding disorder Social History Smoking and tobacco status: former smoker Alcohol intake: current Alcohol intake frequency: holidays/special occasions only Alcohol type: wine Lives independently: Yes Marital status: Single Current occupational status: disabled History of recent travel: No Physical Exam Const: EXAM LIMITATIONS: no altered mental status Course Vital Signs: Vital signs: Vital Signs Temperature 97.8 F 06/24/22 11:33 Pulse Rate 80 06/24/22 18:33 Respiratory Rate 15 06/24/22 18:33 Blood Pressure 121/78 06/24/22 18:33 Pulse Oximetry 97 06/24/22 18:33 Oxygen Delivery Me thod 06/24/22 11:33 MDM - Nausea/Vomiting/Diarrhea Medical Decision Making Hemoglobin stable. She has not been having any further bloody emesis this is a month ago I did encourage her to check with her doctor about resuming the Xarelto is concerning that she has been off of it. She has a colitis on the CT we will start her on Cipro and metronidazole. Clear liquid diet for 24 to 48 hours and advance as tolerated return if has problems. Medical Records I reviewed the patient's medical records. Lab Data I reviewed the patient's lab results. : 06/24/22 13:27 06/24/22 13:27 Radiology Impressions Abdomen/Pelvis CT 06/24/22 14:59 IMPRESSION: 1. Submucosal edema throughout the RIGHT colon and hepatic flexure and again within the distal colon. Consider infectious etiologies such as pseudomembranous colitis. Less likely ischemic disease. 2. No GI tract obstruction. 3. Cholelithiasis within a contracted gallbladder. Laboratory Results WBC 9.3 10^3/uL (4.0-10.0) 06/24/22 13:27 RBC 3.87 10^6/uL (4.1-5.3) L 06/24/22 13:27 Hgb 13.6 g/dL (11.5-15.3) 06/24/22 13:27 Hct 41.3 % (37.0-47.0) 06/24/22 13:27 MCV 106.7 fl (81-99) H 06/24/22 13:27 MCH 35.1 pg (28.0-34.0) H 06/24/22 13:27 MCHC 32.9 g/dL (30.0-36.0) 06/24/22 13:27 RDW 13.1 % (12.1-15.1) 06/24/22 13:27 Plt Count 100 10^3/cmm (130-400) L 06/24/22 13:27 MPV 11.3 fL (7.4-10.4) H 06/24/22 13:27 Neut % (Auto) 74.5 % 06/24/22 13:27 Lymph % (Auto) 17.0 % 06/24/22 13:27 [place] % (Auto) 6.2 % 06/24/22 13:27 Eos % (Auto) 1.4 % 06/24/22 13:27 Baso % (Auto) 0.5 % 06/24/22 13:27 Neut # (Auto) 6.93 10^3/uL (1.8-7.7) 06/24/22 13:27 Lymph # (Auto) 1.6 10^3/uL (0.8-4.8) 06/24/22 13:27 [place] # (Auto) 0.6 10^3/uL (0.2-0.9) 06/24/22 13:27 Eos # (Auto) 0.1 10^3/uL (0.0-0.8) 06/24/22 13:27 Baso # (Auto) 0.1 10^3/uL (0.0-0.1) 06/24/22 13:27 Nucleated RBC % (auto) 0 % 06/24/22 13:27 Nucleated RBCs # 0.0 /100WBC 06/24/22 13:27 Sodium 137 mmol/L (136-145) 06/24/22 13:27 Potassium 3.7 mmol/L (3.5-5.1) 06/24/22 13:27 Chloride 103 mmol/L (98-107) 06/24/22 13:27 Carbon Dioxide 25 mmol/L (22-29) 06/24/22 13:27 Anion Gap 12.7 (5-19) 06/24/22 13:27 BUN 4 mg/dL (6-20) L 06/24/22 13:27 Creatinine 0.8 mg/dL (0.5-0.9) 06/24/22 13:27 GFR Calculation 74.2 mL/min (90-130) L 06/24/22 13:27 Glucose 90 mg/dL (65-115) 06/24/22 13:27 Calculated Osmolality 280 mOsm/kg (285-295) L 06/24/22 13:27 Calcium 8.3 mg/dL (8.5-10.5) L 06/24/22 13:27 Total Bilirubin 0.8 mg/dL (0.15-1.2) 06/24/22 13:27 AST 52 U/L (0-32) H 06/24/22 13:27 ALT 33 U/L (0-33) 06/24/22 13:27 Alkaline Phosphatase 149 U/L (35-105) H 06/24/22 13:27 Total Protein 6.1 g/dL (6.6-8.7) L 06/24/22 13:27 Albumin 3.0 g/dL (3.5-5.2) L 06/24/22 13:27 Globulin 3.1 g/dL (1.3-4.6) 06/24/22 13:27 Lipase 10 U/L (13-60) L 06/24/22 13:27 Discharge Plan Discharge Patient Disposition: Home Clinical Impression: Colitis Condition: Stable Prescriptions: New Cipro 500 mg tablet 500 mg PO BID Qty: 20 0RF ondansetron HCl 4 mg tablet 4 mg PO Q6H PRN (Reason: nausea and vomiting) Qty: 20 0RF No Action gabapentin 300 mg capsule 300 mg PO Q4H hydroxyzine pamoate 50 mg capsule 50 mg PO Q4H PRN (Reason: Anxiety) levothyroxine 50 mcg tablet 50 mcg PO QAM Humira(CF) Pen 80 mg/0.8 mL Pen Injector Kit See Rx Instructions .ROUTE .COMPLEX Rx Instructions: 160 mg subcutaneously starting dose 06/05/22 then 80mg on day 15 (06/20/22) then every week there after albuterol sulfate 90 mcg/actuation Hfa Aerosol Inhaler 2 puff INHALATION QID PRN (Reason: Shortness Of Breath) Eliquis 2.5 mg Tablet 2.5 mg PO BID Discharge Orders: Discharge ED (Routine); Ordered 06/24/22 Ordered By: Anil Hackett Referrals: Amita Hartley FNP [Primary Care Provider] - Discharge Diet: Clear Liquid Discharge Activity: Increase activity as tolerated Patient Instructions: Opioid Safety Activity Restrictions/Additional Instructions: Clear liquid diet for 24 to 48 hours and advance as tolerated. Coding Level of Care Code ED Director Digital Catalogue for [employer] Fwsadie Exam Problem Focused
--- NOTE | 2022-06-24 14:14 | PC.PHAR ---
Addendum entered by Mine Somers 06/24/22 14:24: pt has rx for hydrocortisone cream states it doesnt work and that she didnt bulk picker and has a rx she hasnt gotten because insurance wouldnt pay for hydrocortisone 25mg suppository Original Note: pt states she takes care of her own medications-pt states she stop taking eliquis 2 days ago-pt states she gets samples from her drs office-pt states she was on xarelto 20mg qpm filled 05/07/22 90d/s pt states she had a reaction and is now on eliquis 2.5mg bid-
--- NOTE | 2022-06-24 14:59 | CT_ITS ---
WS: [id number] CT ABDOMEN AND PELVIS WITH CONTRAST HISTORY: Abdominal pain, nausea, vomiting and diarrhea. Weakness. TECHNIQUE: Imaging performed of the abdomen and pelvis with IV contrast. Single phase imaging of the abdomen. Coronal and sagittal reformats are submitted. All CT scans at [facility] use at [address] one of these dose optimization techniques: automated exposure control; mA and/or kV adjustment per patient size (includes targeted exams where dose is matched to clinical indication); or iterative re construction. IV CONTRAST: Omnipaque 350; 80 mL IV. Oral contrast: No DLP: 563.74 mGy.cm COMPARISON: 07/12/2018 Lower thorax: Benign granuloma RIGHT lower lobe. Cardiac pacer wires RIGHT heart. No hiatal hernia. Liver/biliary system: Normal size with no intrahepatic dilatation. Gallbladder: Contracted gallbladder with stones. No bile duct dilatation. Pancreas: Normal size pancreas and pancreatic duct. No adjacent inflammation. Spleen: Normal size spleen. No mass or infarct. Adrenal glands: Normal. Right kidney: Normal. Left kidney: Normal. Aorta: Mild atherosclerosis with no aneurysm. Lymphadenopathy: None. Free fluid: None. GI tract: Nondistended stomach. No small bowel obstruction. There is mild submucosal edema throughout a large portion of the colon. Most significant involving the ascending colon through the splenic fle xure and towards the distal sigmoid. No significant diverticular disease. Abdominal wall: Unremarkable abdominal wall. No hernia. Pelvis: No free fluid or adenopathy within the pelvis. Nondistended urinary bladder. Mild perirectal soft tissue inflammation but no free fluid or abscess. Bones: L1 prior vertebroplasty. CT/CT abdomen pelvis w con* [id number] IMPRESSION: 1. Submucosal edema throughout the RIGHT colon and hepatic flexure and again w ithin the distal colon. Consider infectious etiologies such as pseudomembranous colitis. Less likely ischemic disease. 2. No GI tract obstruction. 3. Cholelithiasis within a contracted gallbladder.
[2022-06-24] MEDS: iohexol 350 mg/mL 100 mL Btl IV (15:40)
[2022-06-24 18:33] VITALS: BP 121/78; PULSE 80; RESP 15; O2SAT 97
== END 2022-06-24 18:34 | disposition home or self-care (01) ==
PROVIDERS: Emergency Medicine; Emergency Provider Family Medicine; PCP Nurse Practitioner Family
DX: K52.9 Noninfective gastroenteritis and colitis, unspecified (principal); Z79.01 Long term (current) use of anticoagulants; Z95.0 Presence of cardiac pacemaker; Z87.891 Personal history of nicotine dependence
CPT/HCPCS: 36415; 74177; 80053; 83690; 85025; 96361; 96374; 99285; J2405; J7030; Q9967

== ENCOUNTER 2022-08-06 13:50 | Inpatient (IN) | payer MEDICARE, SELFPAY ==
[2022-08-06] VITALS (7 sets, daily range): BP systolic 111–135; BP diastolic 72–99; PULSE 82–120; RESP 15–26; TEMP 36.4–36.7; O2SAT 97–100; BMI 24.3
--- NOTE | 2022-08-06 13:57 | CT_ITS ---
WS: [id number] CT HEAD NONCONTRAST HISTORY: ams TECHNIQUE: Contiguous axial imaging performed through the brain in 2.5 mm imaging. Bone and soft tiss ue windows. Sagittal and coronal reformats reviewed. All CT scans at [facility] use at least one of these dose optimization techniques: automated exposure control; mA and/or kV adjustment per pa tient size (includes targeted exams where dose is matched to clinical indication); or iterative recon struction. DLP: 1157.88 mGy.cm COMPARISON: None available. No acute intracranial hemorrhage, midline shift or mass effect. Very mild atrophy. No prior infarct. No midline shift. Only mild small vessel ischemic type changes. Ventricles: Normal size with no hydrocephalus. No inferior displacement of cerebellar tonsils. Paranasal sinuses: As visualized are clear. Mastoid air cells: Small amount of fluid in the mastoid tips bilaterally. Calvarium and scalp: Skull is intact with no soft tissue edema or swelling. CT/CT head wo con* [id number] IMPRESSION: 1. No acute intracranial hemorrhage or edema. 2. Mild cerebral atrophy. Similar to the prior study. 3. No skull fracture.
--- NOTE | 2022-08-06 13:57 | XR_ITS ---
WS: [id number] PORTABLE CHEST HISTORY: ams COMPARISON: 07/12/2018 Lungs are clear and well expanded. No pleural effusion or pneumothorax. Cardiac size: Normal. Mediastinum/Aorta: Normal mediastinum. No osseous abnormality seen. LEFT subclavian dual lead cardiac pacer. XR/XR chest 1V portable [id number] IMPRESSION: Unremarkable portable chest.
--- NOTE | 2022-08-06 13:58 | ECG_ITS ---
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 Measurements Intervals [place] Rate: 87 P: 165 MT: 185 QRS: -83 QRSD: 174 T: 87 QT: 477 QTc: 575 Interpretive Statements ELECTRONIC ATRIAL PACEMAKER ELECTRONIC VENTRICULAR PACEMAKER ABNORMAL RHYTHM ECG Compared to ECG 09/24/2019 16:36:08 No significant changes Electronically Signed On 08-07-2022 12:55:13 CDT by Georgia Conner M.D. [id number]
--- NOTE | 2022-08-06 14:00 | W.ED.NEUROSD ---
HPI - Neuro Symptoms/Deficit General: Chief Complaint: Neuro Symptoms/Deficit Stated Complaint: Neuro Time Seen by Provider: 08/06/22 13:52 History of Present Illness: Associated symptoms: Deny chest pain, nausea or vomiting Review of Systems Const: Denies: fever(s) or chills Eyes: Denies: change in vision ENMT: Denies: mouth pain Card: Denies: chest pain or palpitations Resp: Denies: dyspnea or non-productive cough GI: Denies: abdominal pain, nausea, vomiting or diarrhea : Denies: dysuria Musc: Denies: extremity pain Skin/Breast: Denies: rash or new lesions Neuro: Denies: weakness in extremities Psych: Reports: other (Normal mood) Tj/Lymph: Denies: easy bruising PFSH ED PFSH: Medical History Gastric perforation Gastritis Hidradenitis suppurativa History of pacemaker Hypothyroidism Surgical History History of cardiac radiofrequency ablation 7x History of carpal tunnel release of both wrists History of colonoscopy History of decompression of both ulnar nerves History of esophagogastroduodenoscopy (EGD) (04/24/20) History of gastric bypass History of hysterectomy History of knee replacement History of knee surgery 5 surgeries History of removal of cyst 3x on wrist History of tonsillectomy Status post colonoscopy (04/25/20) normal, repeat in 10 years Family History Denies family history of Anesthesia complication Bleeding disorder Social History Smoking and tobacco status: former smoker Alcohol intake: current Alcohol intake frequency: holidays/special occasions only Alcohol type: wine Lives independently: Yes Marital status: Single Current occupational status: disabled History of recent travel: No Physical Exam Const: COMMON NORMALS: alert HENMT: COMMON NORMALS: atraumatic HEAD & SCALP: atraumatic MOUTH: moist mucous membranes not abnormal Eye: COMMON NORMALS: EOMs intact bilaterally and conjunctivae normal CONJUNCTIVA: Yes conjunctivae normal Neck/C-Spine: COMMON NORMALS: full ROM and supple Resp: COMMON NORMALS: normal respiratory effort and clear to auscultation bilaterally AUSCULTATION: clear to auscultation bilaterally Cardio: COMMON NORMALS: regular rate RATE: regular rate GI: COMMON NORMALS: Soft to palpation and non-tender PALPATION: Yes Soft to palpation Extremity: COMMON NORMALS: full ROM Neuro: SENSORIUM/ORIENTATION: Yes alert MOTOR EXAM: No Abnormal motor strength present and Other motor observations present (no focal motor deficits) Psych: COMMON NORMALS: speech normal SPEECH: Yes normal speech MOOD & AFFECT: Yes euthymic mood Course Vital Signs: Vital signs: Vital Signs Temperature 97.6 F 08/06/22 13:51 Pulse Rate 120 H 08/06/22 13:51 Respiratory Rate 19 H 08/06/22 13:51 Blood Pressure 135/99 08/06/22 13:51 Pulse Oximetry 100 08/06/22 13:51 Oxygen Delivery Me thod 08/06/22 13:51 Discharge Plan Discharge Condition: Stable Prescriptions: No Action gabapentin 300 mg capsule 300 mg PO Q4H hydroxyzine pamoate 50 mg capsule 50 mg PO Q4H PRN (Reason: Anxiety) levothyroxine 50 mcg tablet 50 mcg PO QAM Humira(CF) Pen 80 mg/0.8 mL Pen Injector Kit See Rx Instructions .ROUTE .COMPLEX Rx Instructions: 160 mg subcutaneously starting dose 06/05/22 then 80mg on day 15 (06/20/22) then every week there after albuterol sulfate 90 mcg/actuation Hfa Aerosol Inhaler 2 puff INHALATION QID PRN (Reason: Shortness Of Breath) Eliquis 2.5 mg Tablet 2.5 mg PO BID Cipro 500 mg tablet 500 mg PO BID Qty: 20 0RF ondansetron HCl 4 mg tablet 4 mg PO Q6H PRN (Reason: nausea and vomiting) Qty: 20 0RF Referrals: Amita Hartley FNP [Primary Care Provider] - Coding Level of Care Code ED Associate Of Science In Nursing for Chg Fwd Exam Comprehensive
[2022-08-06 14:16] LABS: Basophils % 0.4 %; Eosinophils % 0.4 %; Hematocrit 34.2 % (37.0-47.0); Hemoglobin 11.3 g/dL (11.5-15.3); Lymphocytes # 1.4 10^3/uL (0.8-4.8); Lymphocytes % 13.9 %; Mean Corpuscular Hemoglobin 33.7 pg (28.0-34.0); Mean Corpuscular Volume 102.1 fl (81-99); Mean Platelet Volume 11.2 fL (7.4-10.4); Monocytes # 0.7 10^3/uL (0.2-0.9); Monocytes % 6.6 %; Neutrophils # 7.99 10^3/uL (1.8-7.7); Neutrophils % 78.3 %; Nucleated Red Blood Cells % 0.2 %; Platelet Count 78 10^3/cmm (130-400); Red Blood Count 3.35 10^6/uL (4.1-5.3); Red Cell Distribution Width 12.6 % (12.1-15.1); White Blood Count 10.2 10^3/uL (4.0-10.0)
[2022-08-06 14:30] LABS: Lactic Sepsis W/Reflex 2.4 mmol/L (0.5-2.2)
[2022-08-06 14:43] LABS: Troponin(5th) Baseline 12 ng/L (0-10)
--- NOTE | 2022-08-06 14:44 | ED_ITS ---
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 Per EMS, patient was found down on the ground by his sister earlier today. Clearly patient has been down for. By the time patient's sister found the patient, patient was slurring her words. EMS was called patient was brought to the emergency room. In route, patient's speech improved without any intervention. Think she was with within normal limit in route. Rest of vitals within normal limit. Patient does not remember what happened. Patient is AAO x2, answering most questions appropriately. Patient denies having any focal complaints other than left greater than right hip pain. Rest of hx of limited mental status. Onset: unknown Duration:ongoing Location:home Severity:moderate Review of Systems General: Reports: ROS unobtainable due to mental status Const: Reports: other (+generalized weakness) Musc: Reports: other (+b/l hip L > R) Neuro: Reports: other (+confusion) PFSH ED PFSH: Medical History Gastric perforation Gastritis Hidradenitis suppurativa History of pacemaker Hypothyroidism Surgical History History of cardiac radiofrequency ablation 7x History of carpal tunnel release of both wrists History of colonoscopy History of decompression of both ulnar nerves History of esophagogastroduodenoscopy (EGD) (04/24/20) History of gastric bypass History of hysterectomy History of knee replacement History of knee surgery 5 surgeries History of removal of cyst 3x on wrist History of tonsillectomy Status post colonoscopy (04/25/20) normal, repeat in 10 years Family History Denies family history of Anesthesia complication Bleeding disorder Social History Smoking and tobacco status: former smoker Alcohol intake: current Alcohol intake frequency: holidays/special occasions only Alcohol type: wine Lives independently: Yes Marital status: Single Current occupational status: disabled History of recent travel: No Physical Exam Const: COMMON NORMALS: alert HENMT: COMMON NORMALS: atraumatic HEAD & SCALP: atraumatic MOUTH: moist mucous membranes abnormal Eye: COMMON NORMALS: EOMs intact bilaterally and conjunctivae normal CONJUNCTIVA: Yes conjunctivae normal Neck/C-Spine: COMMON NORMALS: full ROM and supple Resp: COMMON NORMALS: normal respiratory effort and clear to auscultation bilaterally AUSCULTATION: clear to auscultation bilaterally Cardio: RATE: tachycardic GI: COMMON NORMALS: Soft to palpation and non-tender PALPATION: Yes Soft to palpation OTHER: No focal TTP. NO guarding rebound, guarding, rigidity. No CVA tenderness to percussion. Neg Smith/Neg McBurney's point tenderness, no suprabupic tenderness to palpation. Back/Pelvis: OTHER: + Pain with range of motion of the left hip and the right hip Extremity: COMMON NORMALS: full ROM Neuro: SENSORIUM/ORIENTATION: Yes alert MOTOR EXAM: No Abnormal motor strength present and Other motor observations present (no focal motor deficits) OTHER: AAOx2, confused, answering questions following commands, cranial nerves II thro ugh XII grossly intact, sensation and strength intact in all extremities Psych: COMMON NORMALS: speech normal SPEECH: Yes normal speech MOOD & AFFECT: Yes euthymic mood Course Vital Signs: Vital signs: Vital Signs Temperature 97.6 F 08/06/22 13:51 Pulse Rate 82 08/06/22 15:30 Respiratory Rate 21 H 08/06/22 15:30 Blood Pressure 111/82 08/06/22 15:30 Pulse Oximetry 100 08/06/22 15:30 Oxygen Delivery Me thod 08/06/22 15:30 [facility] - General Adult Medical Decision Making Patient is a 57-year-old female with a history of alcohol dependence, prior bowel perforation, hypothyroidism, pacemaker dependence presenting to the emergency room for evaluation of altered mental status and found down. On physical exam, patient is AAO x2, has dry mucous membranes mildly tachycardic to low 100s. EKG showed paced rhythm at heart rate over 100. Patient received IVF in the ER for x-ray of the pelvis negative for any acute finding. Her chest appears to be clear. CT head is negative for any brain bleed. Lab work-up showed patient had mild anion gap of 23. Glucose appears to be within normal limit. Hemoglobin of 11.3. Creatinine 1.1. UA pending at this time. Patient will admitted to the hospital for altered mental status work-up. CK pending. Disposition: admission Lab Data : 08/06/22 14:07 08/06/22 14:07 Radiology Impressions Chest X-Ray 08/06/22 13:57 IMPRESSION: Unremarkable portable chest. Head CT 08/06/22 13:57 IMPRESSION: 1. No acute intracranial hemorrhage or edema. 2. Mild cerebral atrophy. Similar to the prior study. 3. No skull fracture. Pelvis X-Ray 08/06/22 14:59 IMPRESSION: Negative pelvis. Laboratory Results WBC 10.2 10^3/uL (4.0-10.0) H 08/06/22 14:07 RBC 3.35 10^6/uL (4.1-5.3) L 08/06/22 14:07 Hgb 11.3 g/dL (11.5-15.3) L 08/06/22 14:07 Hct 34.2 % (37.0-47.0) L 08/06/22 14:07 MCV 102.1 fl (81-99) H 08/06/22 14:07 MCH 33.7 pg (28.0-34.0) 08/06/22 14:07 MCHC 33.0 g/dL (30.0-36.0) 08/06/22 14:07 RDW 12.6 % (12.1-15.1) 08/06/22 14:07 Plt Count 78 10^3/cmm (130-400) L 08/06/22 14:07 MPV 11.2 fL (7.4-10.4) H 08/06/22 14:07 Neut % (Auto) 78.3 % 08/06/22 14:07 Lymph % (Auto) 13.9 % 08/06/22 14:07 [place] % (Auto) 6.6 % 08/06/22 14:07 Eos % (Auto) 0.4 % 08/06/22 14:07 Baso % (Auto) 0.4 % 08/06/22 14:07 Neut # (Auto) 7.99 10^3/uL (1.8-7.7) H 08/06/22 14:07 Lymph # (Auto) 1.4 10^3/uL (0.8-4.8) 08/06/22 14:07 [place] # (Auto) 0.7 10^3/uL (0.2-0.9) 08/06/22 14:07 Eos # (Auto) 0.0 10^3/uL (0.0-0.8) 08/06/22 14:07 Baso # (Auto) 0.0 10^3/uL (0.0-0.1) 08/06/22 14:07 Nucleated RBC % (auto) 0.2 % 08/06/22 14:07 Nucleated RBCs # 0.0 /100WBC 08/06/22 14:07 Sodium 139 mmol/L (136-145) 08/06/22 14:07 Potassium 3.6 mmol/L (3.5-5.1) 08/06/22 14:07 Chloride 105 mmol/L (98-107) 08/06/22 14:07 Carbon Dioxide 14 mmol/L (22-29) L 08/06/22 14:07 Anion Gap 23.6 (5-19) H 08/06/22 14:07 BUN 22 mg/dL (6-20) H 08/06/22 14:07 Creatinine 1.1 mg/dL (0.5-0.9) H 08/06/22 14:07 GFR Calculation 51.4 mL/min (90-130) L 08/06/22 14:07 Glucose 104 mg/dL (65-115) 08/06/22 14:07 Calculated Osmolality 292 mOsm/kg (285-295) 08/06/22 14:07 Lactic Acid 2.4 mmol/L (0.5-2.2) H 08/06/22 14:07 Calcium 8.2 mg/dL (8.5-10.5) L 08/06/22 14:07 Total Bilirubin 1.2 mg/dL (0.15-1.2) 08/06/22 14:07 AST 28 U/L (0-32) 08/06/22 14:07 ALT 27 U/L (0-33) 08/06/22 14:07 Alkaline Phosphatase 81 U/L (35-105) 08/06/22 14:07 Creatine Kinase 67 U/L (26-192) 08/06/22 14:07 Troponin T Baseline 12 ng/L (0-10) H 08/06/22 14:07 Total Protein 6.0 g/dL (6.6-8.7) L 08/06/22 14:07 Albumin 3.0 g/dL (3.5-5.2) L 08/06/22 14:07 Globulin 3.0 g/dL (1.3-4.6) 08/06/22 14:07 Lipase 24 U/L (13-60) 08/06/22 14:07 TSH 2.75 uIU/mL (0.27-4.20) 08/06/22 14:07 Free T4 1.21 ng/dL (0.82-1.77) 08/06/22 14:07 Salicylates < 0.3 mg/dL (3-10) L 08/06/22 14:07 Acetaminophen < 5.0 ug/mL (10-30) L 08/06/22 14:07 Ethyl Alcohol < 10 mg/dL (0-10) 08/06/22 14:07 Imaging Data Other Imaging: Radiologist's impression: [address] [place] [address] CT Scan Report Signed Patient: Bekah Segovia Unit #: [id number] : 1965 Age/Sex: 57 / F ADM Date: 08/06/22 Loc: ER Room/Bed: Attending Dr: Ordering Provider/Ordering MD: Nathaniel Shrestha MD Date of Service: 08/06/22 Procedure(s): CT head wo con* [id number] Accession Number(s): [id number] Report Number: [id number] WS: [id number] CT HEAD NONCONTRAST HISTORY: ams TECHNIQUE: Contiguous axial imaging performed through the brain in 2.5 mm imaging. Bone and soft tissue windows. Sagittal and coronal reformats reviewed.? All CT scans at [facility] use at least one of these dose optimization techniques: automated exposure control; mA and/or kV adjustment per patient size (includes targeted exams where dose is matched to clinical indication); or iterative reconstruction. DLP: 1157.88 mGy.cm COMPARISON: None available. No acute intracranial hemorrhage, midline shift or mass effect. Very mild atrophy. No prior infarct. No midline shift. Only mild small vessel ischemic type changes. Ventricles:? Normal size with no hydrocephalus. No inferior displacement of cerebellar tonsils. Paranasal sinuses: As visualized are clear. Mastoid air cells: Small amount of fluid in the mastoid tips bilaterally. Calvarium and scalp: Skull is intact with no soft tissue edema or swelling. CT/CT head wo con* [id number] IMPRESSION: ? 1.? No acute intracranial hemorrhage or edema. 2.? Mild cerebral atrophy. Similar to the prior study. 3.? No skull fracture. ? Dictated By: Nubia Gray DO Signed By: Nubia Gray DO Signed Date/Time: 08/06/221448 DD/ [address] [place] [address] XRay Report Signed Patient: Bekah Segovia Unit #: [id number] : 1965 Age/Sex: 57 / F ADM Date: 08/06/22 Loc: ER Room/Bed: Attending Dr: Ordering Provider/Ordering MD: Nathaniel Shrestha MD Date of Service: 08/06/22 Procedure(s): XR chest 1V portable 44659 Accession Number(s): [id number] Report Number: [id number] WS: [id number] PORTABLE CHEST HISTORY: ams COMPARISON: 07/12/2018 Lungs are clear and well expanded. No pleural effusion or pneumothorax. Cardiac size: Normal. Mediastinum/Aorta: Normal mediastinum. No osseous abnormality seen. LEFT subclavian dual lead cardiac pacer. XR/XR chest 1V portable [id number] IMPRESSION: ? Unremarkable portable chest. ? ? ? Dictated By: Nubia Gray DO Signed By: Nubia Gray DO Signed Date/Time: 08/06/221449 DD/ [address] [place] [address] XRay Report Signed Patient: Bekah Segovia Unit #: [id number] : 1965 Age/Sex: 57 / F ADM Date: 08/06/22 Loc: ER Room/Bed: Attending Dr: Ordering Provider/Ordering MD: Nathaniel Shrestha MD Date of Service: 08/06/22 Procedure(s): XR pelvis 1-2V* 26175 Accession Number(s): [id number] Report Number: [id number] WS: [email or web address] PELVIS: AP VIEW SUBMITTED HISTORY: pelvic pain COMPARISON: None available. Bones and soft tissues of the pelvis are intact. No fracture or dislocation. XR/XR pelvis 1-2V* 01002 IMPRESSION: ? Negative pelvis. ? 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
[2022-08-06 14:50] LABS: Alanine Aminotransferase 27 U/L (0-33); Alkaline Phosphatase 81 U/L (35-105); Aspartate Amino Transferase 28 U/L (0-32); Blood Urea Nitrogen 22 mg/dL (6-20); Calcium 8.2 mg/dL (8.5-10.5); Carbon Dioxide 14 mmol/L (22-29); Chloride 105 mmol/L (98-107); Creatine Phosphokinase 67 U/L (26-192); Creatinine Clr Calc Pharmacy 60.7351; Free T4 Free Thyroxine 1.21 ng/dL (0.82-1.77); Glomerular Filtration Rate 51.4 mL/min (90-130); Glucose 104 mg/dL (65-115); Lipase 24 U/L (13-60); Osmolality Calculated 292 mOsm/kg (285-295); Sodium 139 mmol/L (136-145); Thyroid Stimulating Hormone 2.75 uIU/mL (0.27-4.20); Total Bilirubin 1.2 mg/dL (0.15-1.2)
[2022-08-06 14:59] LABS: Acetaminophen < 5.0 ug/mL (10-30); Salicylate < 0.3 mg/dL (3-10)
--- NOTE | 2022-08-06 14:59 | XR_ITS ---
WS: [id number] PELVIS: AP VIEW SUBMITTED HISTORY: pelvic pain COMPARISON: None available. Bones and soft tissues of the pelvis are intact. No fracture or dislocation. XR/XR pelvis 1-2V* 53552 IMPRESSION: Negative pelvis.
[2022-08-06 15:00] LABS: Anion Gap 23.6 (5-19); Potassium 3.6 mmol/L (3.5-5.1)
[2022-08-06] MEDS: cefepime 1,000 MG in sodium chloride 0.9% (plus) 50 ML 100 MG IV (15:04)
[2022-08-06] MEDS: sodium chloride 0.9% 500 ML IV (15:05)
[2022-08-06 15:30] LABS: Alcohol Level < 10 mg/dL (0-10)
[2022-08-06] MEDS: vancomycin 1,000 MG in sodium chloride 0.9% 250 ML 250 MG IV (15:39)
[2022-08-06 16:02] LABS: Reflex Lactate Order REFLEX LACTIC ORDERD
[2022-08-06 16:52] LABS: Lactic Acid level (Lactate) 2.4 mmol/L (0.5-2.2)
[2022-08-06 16:53] LABS: Ammonia 18 umol/L (11-51)
[2022-08-06 17:26] LABS: Troponin 5 2HR 11.95 ng/L (0-10)
[2022-08-06 17:29] LABS: Troponin 5 2HR Delta -0.05 ABS# (0-10)
[2022-08-06 17:58] LABS: Add Urine Microscopic? YES; Bilirubin Urine 2+ (Negative); Blood Urine 3+ (Negative); Glucose Urine UA Norm (Normal); Ketones Urine 1+ (Negative); Leukocyte Esterase Urine 1+ (Negative); Nitrate Urine Negative (Negative); Protein Urine 1+ (Negative); Urine Appearance Cloudy (CLEAR); Urine Color Yellow (Yellow); Urobilinogen Urine 4 mg/dL (Negative); pH Urine 6 (5-7)
[2022-08-06 18:01] LABS: Add Urine Culture? Yes; Bacteria Urine 4+ /hpf; RBC Urine 0-4 /hpf (0-2); Squamous Epithelial Cell Urine 0-4 /hpf (0-5); WBC Urine 0-4 /hpf (0-5)
--- NOTE | 2022-08-06 18:21 | CTR_ITS ---
PROCEDURE INFORMATION: Exam: CTA Abdomen and Pelvis With Contrast Exam date and time: 08/06/2022 8:23 PM Age: 57 years old Clinical indication: Abdominal pain; Localized; Left lower quadrant (llq); Additional info: Abdo pain, lactate elevation TECHNIQUE: Imaging protocol: Computed tomographic angiography of the abdomen and pelvis with contrast. 3D rendering (Not supervised by radiologist): MIP and/or 3D reconstructed images were created by the technologist. Radiation optimization: All CT scans at this facility use at least one of these dose optimization techniques: automated exposure control; mA and/or kV adjustment per patient size (includes targeted exams where dose is matched to clinical indication); or iterative reconstruction. Contrast material: OMNIPAQUE 350; Contrast volume: 95 ml; Contrast route: INTRAVENOUS (IV); COMPARISON: CT abdomen pelvis w con* [id number] 06/24/2022 3:40 PM RADIATION DOSE METRICS: Total DLP (mGy-cm): 713.27 FINDINGS: Tubes, catheters and devices: Pacemaker. Lungs: Left lower lobe atelectasis. Aorta: No aortic aneurysm. No aortic dissection. Celiac trunk and mesenteric arteries: Celiac artery proximally demonstrates 50% narrowing secondary to noncalcified atherosclerotic plaque with contrast seen distally. Renal arteries: Bilateral proximal renal artery approximately 50% narrowing secondary to calcified atherosclerotic plaque. Right iliac arteries: No occlusion or significant stenosis. Left iliac arteries: No occlusion or significant stenosis. Liver: No mass. Gallbladder and bile ducts: Cholelithiasis. Pancreas: Unremarkable. No mass. No ductal dilation. Spleen: Unremarkable. No splenomegaly. Adrenal glands: Unremarkable. No mass. Kidneys and ureters: Unremarkable. No solid mass. No hydronephrosis. Stomach and bowel: Prominent fluid in the small bowel along with some left colon wall thickening may reflect an enterocolitis in the appropriate clinical setting. Gastric surgical sutures. Appendix: No evidence of appendicitis. Intraperitoneal space: Unremarkable. No free air. No significant fluid collection. Lymph nodes: Unremarkable. No enlarged lymph nodes. Urinary bladder: Unremarkable. No mass. Reproductive: Unremarkable as visualized. Bones/joints: L1 vertebroplasty changes. L2 vertebral body hemangioma appears benign. Soft tissues: Unremarkable. CT/CT angio abdomen pelvis [id number] IMPRESSION: 1. Prominent fluid in the small bowel along with some left colon wall thickening may reflect an enterocolitis in the appropriate clinical setting. 2. Celiac artery proximally demonstrates 50% narrowing secondary to noncalcified atherosclerotic plaque with contrast seen distally. 3. Bilateral proximal renal artery approximately 50% narrowing secondary to calcified atherosclerotic plaque. 4. L1 vertebroplasty changes. 5. L2 vertebral body hemangioma appears benign. 6. Gastric surgical sutures. 7. Left lower lobe atelectasis. 8. Pacemaker. 9. Cholelithiasis.
--- NOTE | 2022-08-06 18:28 | PM.HP ---
Providers/Chief Complaint Primary Care Provider: Amita Hartley Chief Complaint: Neuro History of Present Illness 57-year-old lady was found down at home by her sister for an unknown period of time, may have been several days, very weak, confused, dry mucous membranes, disheveled, with slurred speech. In ER she is found mildly tachycardic, dehydrated, with unremarkable CT of the head, chest x-ray without suggestion of pneumonia or other acute abnormality, negative x-ray pelvis. Noted with anion gap, metabolic acidosis, creatinine 1.1, BUN 22, but normal CK, hemoglobin 11.3, platelets 78,000. Received IV fluid bolus and a dose of cefepime, vancomycin. She herself is not a good historian, unable to provide any useful history, give some circumstantial information but none relating to her presentation, like telling me she had had an endoscopy with Dr. Duenas previously. She is able to tell me the current year, is not able to tell me where she is. Her sister who is accompanying her at bedside provides additional history. She is very concerned that patient has had alcohol use disorder, drinking beer. She is concerned that she may be developing liver disease, or other complications. Patient provides very limited review of systems. Denies pain or discomfort. Denies any headache. During physical exam patient is noted having abdominal tenderness. During the interview and arthropod is also noted and collected in specimen which appears to be possibly a flea, although cannot exclude lice and isolation is requested. Review of Systems General: Reports: ROS unobtainable due to mental status (Limited ROS, denies pain or discomfort. Denies headache. ) Medications/Allergies Home Medications Medication Instructions Recorded Confirmed Last Taken Type gabapentin 300 mg capsule 300 mg PO Q4H PAIN 02/23/20 08/06/22 06/24/22 02:00 History hydroxyzine pamoate 50 mg capsule 50 mg PO Q4H PRN Anxiety 02/23/20 08/06/22 06/24/22 02:00 History adalimumab 80 mg/0.8 mL See Rx Instructions .Route .COMPLEX 06/24/22 08/06/22 06/20/22 History subcutaneous pen kit (Humira(CF) Pen) levothyroxine 50 mcg tablet 50 mcg PO QAM 06/24/22 08/06/22 06/24/22 History rivaroxaban 20 mg tablet (Xarelto) 20 mg PO QPM 08/06/22 08/06/22 Unknown History Allergies Allergy/AdvReac Type Severity Reaction Status Date / Time acetaminophen [From Tylenol] Allergy ALGY-Anaphy Verified 08/06/22 14:20 laxis codeine Allergy ALGY-Anaphy Verified 08/06/22 14:20 laxis fentanyl Allergy ALGY-Difficulty Verified 08/06/22 14:20 Breathing hydromorphone Allergy ALGY-Hives Verified 08/06/22 14:20 ibuprofen [From Advil] Allergy ALGY-Anaphy Verified 08/06/22 14:20 laxis morphine Allergy ADR-Halluci Verified 08/06/22 14:20 nating naproxen [From Aleve] Allergy ALGY-Anaphy Verified 08/06/22 14:20 laxis rivaroxaban [From Xarelto] Allergy ALGY-Rash,i Verified 08/06/22 14:20 tching, Sulfa (Sulfonamide Allergy ALGY-Bliste Verified 08/06/22 14:20 Antibiotics) r PFSH Acute PFSH: Medical History DVT (deep vein thrombosis) in Gastric perforation Gastritis Hidradenitis suppurativa History of pacemaker Hypothyroidism Surgical History History of cardiac radiofrequency ablation 7x History of carpal tunnel release of both wrists History of colonoscopy History of decompression of both ulnar nerves History of esophagogastroduodenoscopy (EGD) (04/24/20) History of gastric bypass History of hysterectomy History of knee replacement History of knee surgery 5 surgeries History of removal of cyst 3x on wrist History of tonsillectomy Status post colonoscopy (04/25/20) normal, repeat in 10 years Family History Denies family history of Anesthesia complication Bleeding disorder Social History Smoking and tobacco status: former smoker Alcohol intake: current Alcohol intake frequency: holidays/special occasions only Alcohol type: wine Lives independently: Yes Marital status: Single Current occupational status: disabled History of recent travel: No Vitals/I&O/Wt Last Vital Signs Temp 97.6 F 08/06/22 13:51 Pulse 103 H 08/06/22 16:55 Resp 26 H 08/06/22 16:55 BP 124/85 08/06/22 16:55 Pulse Ox 97 08/06/22 16:55 O2 Del Method 08/06/22 16:55 08/06/22 08/06/22 08/06/22 06:59 14:59 22:59 Intake Total 800 / 800 Balance 800 / 800 Weight last 48 hrs Weight 72.575 kg Physical Exam Const: COMMON NORMALS: alert; negative for patient oriented x3 EXAM LIMITATIONS: altered mental status GENERAL APPEARANCE: cooperative and disheveled ORIENTATION/CONSCIOUSNESS: Yes awake and Yes confused OTHER: Weak, mildly slurred speech HENMT: COMMON NORMALS: oropharynx normal HEAD & SCALP: other (Arthropod, possibly flea noted on right side of the scalp) MOUTH: other (Dry MM) Neck/C-Spine: COMMON NORMALS: no JVD Resp: COMMON NORMALS: normal respiratory effort and clear to auscultation bilaterally AUSCULTATION: clear to auscultation bilaterally Cardio: COMMON NORMALS: no JVD, regular rhythm, S1 normal heart sound present, S2 normal heart sound present and No murmurs present (Cardio) RHYTHM: regular rhythm HEART SOUNDS: S1 normal heart sound present and S2 normal heart sound present GI: COMMON NORMALS: Normal to inspection, nondistended, normoactive bowel sounds present and Soft to palpation PALPATION: Yes Soft to palpation and Yes Tenderness to palpation present (GI) Extremity: COMMON NORMALS: no joint enlargement and no pedal edema Neuro: COMMON NORMALS: moves all extremities; negative for patient oriented x3 SENSORIUM/ORIENTATION: Yes alert Skin: NARRATIVE SKIN EXAM: Some excoriations noted on lower extremities. Full skin exam not conducted at this time. Data : 08/06/22 14:07 08/06/22 14:07 Micro: Microbiology 08/06/22 14:09 Blood Culture - Preliminary Blood SPECIMEN COLLECTED A&P Assessment and plan (1) Acute encephalopathy: Acute metabolic encephalopathy suspect secondary to dehydration, although may have additional cause, possible withdrawal from EtOH as expressed concern for alcohol use disorder by his sister. Concern for possible liver disease, does have thrombocytopenia, although liver parameters otherwise appear unremarkable. Requested ammonia. He has history of hypothyroidism with recent changes in levothyroxine dose, TSH does appear to be normal, however. No obvious pneumonia on chest x-ray. Will check COVID-19 PCR due to generalized weakness. UA not suggestive of UTI. Does have some ketones in urine, suspected starvation ketosis. No history of diabetes. Glucose 104. Does have abdominal tenderness, lactic acidosis 2.4. Discussed with his sister, we will obtain CT angiogram abdomen pelvis for additional assessment. She did receive a dose of cefepime and vancomycin empirically. For now we will not resume antibiotics as she does not appear to have an obvious source of infection, does not appear to be in sepsis. Discussed with her sister and we may, however, may decide to resume antibiotics depending on additional findings. She denies ever taking Humira, her sister also denies her being on this medication. Humira seems to be listed on her home medication, although I do not see it on external prescription list. Possible alcohol withdrawal, add CIWA protocol, thiamine, folic acid, multivitamin. (2) Generalized weakness: With acute dehydration, and IV hydration, will additionally assess ammonia. COVID-19. CT abdomen pelvis as above. PT, OT assessment. Additional concern for possible alcohol withdrawal, with sinus tachycardia, confusion, supportive care for EtOH withdrawal. (3) Abdominal tenderness: Additional assessment with CT angiogram abdomen pelvis. (4) Lactic acidosis: Suspect secondary to severe dehydration, IV rehydration as above. Additional assessment with CT angiogram abdomen pelvis. (5) Dehydration: LR infusion (6) Alcohol use disorder: Chlordiazepoxide per CIWA protocol for withdrawal. Thiamine, folic acid, multivitamin. Once she is more coherent would benefit from additional discussion regarding concerns of alcohol use disorder. (7) Arthropod infestation: Requested identification, arthropod caught in specimen cup, appears likely flea, cannot exclude lice. Sister reports she has dogs at home. Contact isolation. Discussed with ER physician. (8) Thrombocytopenia: Not entirely clear cause at this time, but would suspect bone marrow suppression secondary to EtOH as per concerns above. Cannot exclude hypersplenism. Possibly other causes. Additional assessment with CT abdomen pelvis. Check LDH, haptoglobin, reticulocyte count. COVID-19. Reassess blood counts. Plan Remote history of DVT PPM History of gastric bypass History of gastric perforation Hidradenitis suppurativa Hypothyroidism Attestations Medical Necessity Statement*: Admission of over 2 midnights is anticipated versus management of acute encephalopathy, generalized weakness in a lady with concern for alcohol use disorder. Coding Level of Care Code Acute Trust Administrative Assistant for g Fwd Diagnoses Acute encephalopathy G93.40 Generalized weakness R53.1 Abdominal tenderness R10.819 Lactic acidosis E87.20 Dehydration E86.0 Alcohol use disorder Arthropod infestation B88.2 Thrombocytopenia D69.6
[2022-08-06] MEDS: lactated ringers 1,000 ML 75 ML IV (18:41)
[2022-08-06 18:44] LABS: INR 1.13 (0.8-1.2)
--- NOTE | 2022-08-06 19:58 | ECG_ITS ---
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 Measurements Intervals [place] Rate: 96 P: 259 OK: 178 QRS: -85 QRSD: 177 T: 94 QT: 434 QTc: 551 Interpretive Statements ELECTRONIC ATRIAL PACEMAKER ELECTRONIC VENTRICULAR PACEMAKER ABNORMAL RHYTHM ECG Compared to ECG 08/06/2022 15:36:34 No significant changes Electronically Signed On 08-07-2022 12:58:45 CDT by Georgia Conner M.D. [id number]
[2022-08-06] MEDS: iohexol 350 mg/mL 100 mL Btl IV (20:33)
[2022-08-06 20:44] LABS: Adenovirus Not Detected (NOT DETECT); Chlamydia Pneumoniae Not Detected (NOT DETECT); Coronavirus 229E,HKU1,NL63,OC4 Not Detected (NOT DETECT); Human Metapneumovirus Not Detected (NOT DETECT); Human Rhinovirus/Enterovirus Not Detected (NOT DETECT); Influenza A Not Detected (NOT DETECT); Influenza A H1 Not Detected (NOT DETECT); Influenza A H1-2009 Not Detected (NOT DETECT); Influenza A H3 Not Detected (NOT DETECT); Influenza B Not Detected (NOT DETECT); Mycoplasma Pneumoniae Not Detected (NOT DETECT); Parainfluenza Virus Type 1 Not Detected (NOT DETECT); Parainfluenza Virus Type 2 Not Detected (NOT DETECT); Parainfluenza Virus Type 3 Not Detected (NOT DETECT); Parainfluenza Virus Type 4 Not Detected (NOT DETECT); Respiratory Syncytial Virus A Not Detected (NOT DETECT); Respiratory Syncytial Virus B Not Detected (NOT DETECT); SARS-COV-2 Not Detected (NOT DETECT)
[2022-08-06 21:42] LABS: Troponin 5 6HR 12.18 ng/L (0-10)
[2022-08-06 21:44] LABS: Troponin 5 6HR Delta 0.18 ng/L (0-12)
[2022-08-07] VITALS (7 sets, daily range): BP systolic 97–123; BP diastolic 62–79; PULSE 86–94; RESP 16–17; TEMP 36.7–36.9; O2SAT 96–99
[2022-08-07] MEDS: levothyroxine 50 mcg Tablet PO (05:15)
[2022-08-07] MEDS: lactated ringers 1,000 ML 75 ML IV ×2 (05:15→18:26)
[2022-08-07 06:38] LABS: Basophils % 0.5 %; Eosinophils # 0.1 10^3/uL (0.0-0.8); Eosinophils % 1.3 %; Hematocrit 27.9 % (37.0-47.0); Hemoglobin 9.6 g/dL (11.5-15.3); Lymphocytes # 1.4 10^3/uL (0.8-4.8); Lymphocytes % 18.3 %; Mean Corpuscular HGB Conc 34.4 g/dL (30.0-36.0); Mean Corpuscular Hemoglobin 33.3 pg (28.0-34.0); Mean Corpuscular Volume 96.9 fl (81-99); Mean Platelet Volume 10.7 fL (7.4-10.4); Monocytes # 0.4 10^3/uL (0.2-0.9); Monocytes % 5.7 %; Neutrophils # 5.68 10^3/uL (1.8-7.7); Neutrophils % 73.7 %; Nucleated Red Blood Cells % 0 %; Platelet Count 76 10^3/cmm (130-400); Red Blood Count 2.88 10^6/uL (4.1-5.3); Red Cell Distribution Width 12.7 % (12.1-15.1); White Blood Count 7.7 10^3/uL (4.0-10.0)
[2022-08-07 06:47] LABS: Ammonia 16 umol/L (11-51)
[2022-08-07 06:49] LABS: Alanine Aminotransferase 22 U/L (0-33); Albumin Level 2.8 g/dL (3.5-5.2); Alkaline Phosphatase 79 U/L (35-105); Anion Gap 15.7 (5-19); Aspartate Amino Transferase 22 U/L (0-32); Blood Urea Nitrogen 29 mg/dL (6-20); Calcium 8.6 mg/dL (8.5-10.5); Carbon Dioxide 21 mmol/L (22-29); Chloride 106 mmol/L (98-107); Globulin 2.5 g/dL (1.3-4.6); Glomerular Filtration Rate 51.4 mL/min (90-130); Glucose 79 mg/dL (65-115); Lactate Dehydrogenase 164 U/L (135-214); Osmolality Calculated 293 mOsm/kg (285-295); Potassium 3.7 mmol/L (3.5-5.1); Sodium 139 mmol/L (136-145); Total Protein 5.3 g/dL (6.6-8.7)
[2022-08-07 07:02] LABS: Hematocrit 27.1 % (37.0-47.0); Retic Production Index 0.61; Reticulocyte % 0.9 % (0.5-2.0)
--- NOTE | 2022-08-07 07:39 | PC.OT ---
HOLDING OT EVALUATION TODAY DUE TO TREATMENT FOR ARTHORPOD. EVALUATION TO BE ATTEMPTED AT A LATER TIME.
[2022-08-07] MEDS: folic acid 1 mg Tablet PO (08:33)
[2022-08-07] MEDS: multivitamin therapeutic Tablet 1 TAB PO (08:33)
[2022-08-07] MEDS: heparin 5,000 unit/mL INJ 1 mL 5000 UNIT SUBCUT ×2 (08:33→21:35)
[2022-08-07] MEDS: thiamine 100 mg Tablet PO (08:33)
--- NOTE | 2022-08-07 10:40 | PC.CHAP ---
Pastoral Care Encounter/Spiritual Assessment Type of Contact [] Declined spring maker visit [] Patient/Family/Request visit [] Outpatient visit [] Follow-up visit [] Physician referral [] Code/Alert [x] Routine visit [] Staff referral [] Actively dying [] Patient sleeping [] Family support [] [] Out of room [] Palliative care [] [x] Receiving care in room [] Pre-surgical visit [] Trauma [] Long length of stay [] ICU visit [x] Other: Isolation Relational/Emotional Strength [] Patient feels connected with others/family/visitors/staff [] Distress [] Loneliness/isolation [] Abandonment Spirituality of Patient [] Person of Taryn [] Attends Gnosticist of their Taryn [] Believes in Prayer [] Reads Bible or Jewish materials [] There are Spiritual issues to be addressed Parts Expediter Interventions [] Prayer [] Active listening [] Non-anxious presence [] Spiritual/emotional support [] Crisis/trauma care [] Spiritual counseling [] Bereavement support [] Provided bereavement packet [] Provided Bible/devotional materials [] Provided toy/stuffed animal, coloring book to patient or family member [] Provided Communion [] Anointing/[place] [] Salvation [] Completed spiritual assessment [] Other: Impact on Illness or Injury [] Angry [] Fearful [] Anxious [] Often cries [] Exhaustion [] Unable to work [] Unable to attend mormonism [] Unable to walk/stand [] Unable to read [] Unable to drive [] Unable to eat/drink [] Unable to sleep [] Unable to be with family [] Patient intubated [] Other: Summary Isolation Time spent with patient 5 mins
--- NOTE | 2022-08-07 13:21 | P.PN_ITS ---
Subjective Subjective: Today she is doing somewhat better. She tells me she is locket that her sister came to pick her up to take her to court otherwise she may not have been found at home. She does not remember how she ended up on the floor or any of the events preceding. She states today she feels well. Denies abdominal pain. We discussed with her CT scan results, she denies diarrhea. Does remember having some vomiting at home. Again, no headache or other discomfort, but says has no appetite, could barely eat anything. Vitals/I&O/Wt Last Vital Signs Temp 98.0 F 08/07/22 07:40 Pulse 87 08/07/22 11:54 Resp 16 08/07/22 11:54 BP 115/79 08/07/22 11:54 Pulse Ox 98 08/07/22 11:54 O2 Del Method 08/07/22 11:54 08/06/22 08/07/22 08/07/22 22:59 06:59 14:59 Intake Total 800 / 800 792.5 / 1592.5 Balance 800 / 800 792.5 / 1592.5 Weight last 48 hrs Weight 149.912 kg Weight 72.575 kg Physical Exam Narrative: Working with PT, sitting up at edge of bed. Very weak to stand up, feeling shaky. Had to sit down after standing briefly. Const: COMMON NORMALS: alert EXAM LIMITATIONS: altered mental status GENERAL APPEARANCE: cooperative and disheveled ORIENTATION/CONSCIOUSNESS: Yes awake OTHER: More alert, able to provide better history and ROS, appears more energetic HENMT: COMMON NORMALS: oropharynx normal HEAD & SCALP: other (Arthropod, possibly flea noted on right side of the scalp) MOUTH: other (Dry MM) Neck/C-Spine: COMMON NORMALS: no JVD Resp: COMMON NORMALS: normal respiratory effort and clear to auscultation bilaterally AUSCULTATION: clear to auscultation bilaterally Cardio: COMMON NORMALS: no JVD, regular rhythm, S1 normal heart sound present, S2 normal heart sound present and No murmurs present (Cardio) RHYTHM: regular rhythm HEART SOUNDS: S1 normal heart sound present and S2 normal heart sound present GI: COMMON NORMALS: Normal to inspection, nondistended, normoactive bowel sounds present, Soft to palpation and non-tender PALPATION: Yes Soft to palpation Extremity: COMMON NORMALS: no joint enlargement and no pedal edema Neuro: COMMON NORMALS: moves all extremities SENSORIUM/ORIENTATION: Yes alert Skin: COMMON NORMALS: no rashes or lesions noted NARRATIVE SKIN EXAM: Some excoriations noted on lower extremities. Full skin exam not conducted at this time. GENERAL SKIN EXAM: no rashes or lesions noted Data : 08/07/22 06:10 08/07/22 06:10 Micro: Microbiology 08/06/22 17:40 Urine Culture - Preliminary Urine,Clean Catch Gram Negative Rods 08/06/22 06:10 Blood Culture - Preliminary Blood SPECIMEN COLLECTED 08/06/22 14:09 Blood Culture - Preliminary Blood SPECIMEN COLLECTED A&P Assessment and plan (1) Acute encephalopathy: Improving. Dehydration improving. Continue gentle IV hydration. Check B12, folic acid. Albumin is on the low side, but otherwise does not appear to have signs of cirrhosis necessarily. Platelets are in the low side as well 76,000. Spleen is unremarkable. No suggestion of hemolysis. Liver appearance unremarkable on CT. I do not see suggestion of cirrhosis currently. There was concern for alcohol use disorder. Asking her, she tells me she has had probably about 3 beers in the last 3 months. Sister states that she has been grieving and has not done well with grief, sounding elaborated on the phone nightly, and previously had seen beer cans lying in multiple locations on the floor at home. Sister is concerned that she is depressed. Hopefully her condition and mental status continues to improve. We will revisit with her again. COVID-19 negative. Abdominal tenderness resolved. Findings of possible enterocolitis on CT, although he denies diarrhea, abdominal pain. Does have poor appetite. Monitor for any changes in symptoms. Continue gentle IV hydration. 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 States she took Humira for about a month, had some trouble trying to tell me why she was taking, but it appears that it may have been prescribed by a waste specialist, and it appears it was for hidradenitis suppurativa. Possible alcohol withdrawal, Librium by [facility] protocol, thiamine, folic acid, multivitamin. (2) Generalized weakness: Check B12, folic acid. PT, OT assessment. Additional concern for possible alcohol withdrawal, with sinus tachycardia, confusion, supportive care for EtOH withdrawal. Gram-negative rods in urine. Will continue antibiotic coverage with ceftriaxone for suspected UTI Follow-up blood culture. Sister would like her to come home with her after discharge. (3) Abdominal tenderness: Improved. Possible enterocolitis on CT. although states no diarrhea. Today no abdominal pain. Reassess symptoms. 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 Will need optimization of cardiovascular risk and follow-up. (4) Lactic acidosis: Suspect secondary to severe dehydration, IV rehydration as above. Additional assessment with CT angiogram abdomen pelvis. (5) Dehydration: Continue LR infusion (6) Alcohol use disorder: Chlordiazepoxide per [facility] protocol for withdrawal. Thiamine, folic acid, multivitamin. Once she is more coherent would benefit from additional discussion regarding concerns of alcohol use disorder. (7) Arthropod infestation: Requested identification, arthropod caught in specimen cupContinue admission for assessment of management of difficult to treat pneumonia with underlying malignancy with airway occlusion., appears likely flea, cannot exclude lice. Sister reports she has dogs at home. Contact isolation. Shower when able. Lives at home will need treatment. (8) Thrombocytopenia: Not entirely clear cause at this time, but would suspect bone marrow suppression secondary to EtOH as per concerns above. Cannot exclude hypersplenism. Possibly other causes. Additional assessment with CT abdomen pelvis. No suggestion of hemolysis.. COVID-19 PCR negative. Reassess blood counts. Plan Remote history of DVT PPM History of gastric bypass History of gastric perforation Hidradenitis suppurativa Hypothyroidism Attestations Medical Necessity Statement*: Continue admission for assessment of management of acute encephalopathy, generalized weakness, after being found down on the floor of unclear cause, dehydration. Coding Level of Care Code Acute Hvac Controls Technician for [facility] Fwd Exam Comprehensive Diagnoses Acute encephalopathy G93.40 Generalized weakness R53.1 Abdominal tenderness R10.819 Lactic acidosis E87.20 Dehydration E86.0 Alcohol use disorder Arthropod infestation B88.2 Thrombocytopenia D69.6
[2022-08-07] MEDS: gabapentin 100 mg Capsule PO ×3 (13:53→21:35)
[2022-08-07 14:10] LABS: Folate Level 4.3 ng/mL (4.8-37.3)
[2022-08-07 14:11] LABS: Vitamin B12 957 pg/mL (232-1245)
[2022-08-07] MEDS: cefTRIAXone 1,000 MG in sodium chloride 0.9% (plus) 50 ML 100 MG IV (16:11)
--- NOTE | 2022-08-07 16:27 | PC.NURSE ---
Patient is experiencing visual and auditory hallucinations. Physician notified.
[2022-08-07] MEDS: chlordiazePOXIDE 25 mg Capsule 50 MG PO (16:40)
[2022-08-08] VITALS (9 sets, daily range): BP systolic 89–102; BP diastolic 58–69; PULSE 84–98; RESP 16–18; TEMP 36.4–37.6; O2SAT 94–99
[2022-08-08] MEDS: gabapentin 100 mg Capsule PO ×5 (02:27→20:43)
[2022-08-08 05:24] LABS: Basophils % 0.5 %; Eosinophils # 0.1 10^3/uL (0.0-0.8); Eosinophils % 1.9 %; Hematocrit 24.7 % (37.0-47.0); Hemoglobin 8.2 g/dL (11.5-15.3); Lymphocytes # 1.8 10^3/uL (0.8-4.8); Lymphocytes % 30.2 %; Mean Corpuscular HGB Conc 33.2 g/dL (30.0-36.0); Mean Corpuscular Hemoglobin 32.9 pg (28.0-34.0); Mean Corpuscular Volume 99.2 fl (81-99); Mean Platelet Volume 10.9 fL (7.4-10.4); Monocytes # 0.3 10^3/uL (0.2-0.9); Monocytes % 5.9 %; Neutrophils # 3.54 10^3/uL (1.8-7.7); Nucleated Red Blood Cells % 0.3 %; Platelet Count 71 10^3/cmm (130-400); Red Blood Count 2.49 10^6/uL (4.1-5.3); Red Cell Distribution Width 12.6 % (12.1-15.1); White Blood Count 5.8 10^3/uL (4.0-10.0)
[2022-08-08] MEDS: levothyroxine 50 mcg Tablet PO (05:45)
[2022-08-08 05:51] LABS: Alanine Aminotransferase 20 U/L (0-33); Albumin Level 2.5 g/dL (3.5-5.2); Alkaline Phosphatase 67 U/L (35-105); Blood Urea Nitrogen 22 mg/dL (6-20); Calcium 8.4 mg/dL (8.5-10.5); Carbon Dioxide 24 mmol/L (22-29); Chloride 106 mmol/L (98-107); Globulin 2.4 g/dL (1.3-4.6); Glomerular Filtration Rate 64.8 mL/min (90-130); Glucose 75 mg/dL (65-115); Osmolality Calculated 290 mOsm/kg (285-295); Sodium 139 mmol/L (136-145); Total Bilirubin 0.6 mg/dL (0.15-1.2); Total Protein 4.9 g/dL (6.6-8.7)
[2022-08-08 06:13] LABS: Anion Gap 12.3 (5-19)
[2022-08-08 06:14] LABS: Aspartate Amino Transferase 24 U/L (0-32); Potassium 3.3 mmol/L (3.5-5.1)
[2022-08-08] MEDS: thiamine 100 mg Tablet PO (08:53)
[2022-08-08] MEDS: folic acid 1 mg Tablet PO (08:53)
[2022-08-08] MEDS: heparin 5,000 unit/mL INJ 1 mL 5000 UNIT SUBCUT ×2 (08:53→20:42)
[2022-08-08] MEDS: multivitamin therapeutic Tablet 1 TAB PO (08:53)
[2022-08-08] MEDS: lactated ringers 1,000 ML 75 ML IV (08:56)
--- NOTE | 2022-08-08 10:25 | PC.CHAP ---
Pastoral Care Encounter/Spiritual Assessment Type of Contact [] Declined casting chipper visit [] Patient/Family/Request visit [] Outpatient visit [] Follow-up visit [] Physician referral [] Code/Alert [x] Routine visit [] Staff referral [] Actively dying [] Patient sleeping [] Family support [] [] Out of room [] Palliative care [] [x] Receiving care in room [] Pre-surgical visit [] Trauma [] Long length of stay [] ICU visit [] Other: Relational/Emotional Strength [] Patient feels connected with others/family/visitors/staff [] Distress [] Loneliness/isolation [] Abandonment Spirituality of Patient [] Person of Taryn [] Attends Restorationist of their Taryn [] Believes in Prayer [] Reads Bible or Congregation materials [] There are Spiritual issues to be addressed Motor Brakeman Interventions [x] Prayer [] Active listening [] Non-anxious presence [] Spiritual/emotional support [] Crisis/trauma care [] Spiritual counseling [] Bereavement support [] Provided bereavement packet [] Provided Bible/devotional materials [] Provided toy/stuffed animal, coloring book to patient or family member [] Provided Communion [] Anointing/[place] [] Salvation [] Completed spiritual assessment [] Other: Impact on Illness or Injury [] Angry [] Fearful [] Anxious [] Often cries [] Exhaustion [] Unable to work [] Unable to attend sabianism [] Unable to walk/stand [] Unable to read [] Unable to drive [] Unable to eat/drink [] Unable to sleep [] Unable to be with family [] Patient intubated [] Other: Summary Time spent with patient
[2022-08-08] MEDS: cefTRIAXone 1,000 MG in sodium chloride 0.9% (plus) 50 ML 100 MG IV (15:40)
--- NOTE | 2022-08-08 19:33 | PM.PN ---
Subjective Subjective: She is overall doing okay. She seems to be continuing to improve in terms of her mental status, although seems to have forgotten to have seen the doctor this morning. Denies headache, or other pain or discomfort. States that she feels she is growing stronger little by little. Ate a little bit better as well. Vitals/I&O/Wt Last Vital Signs Temp 97.6 F 08/08/22 04:00 Pulse 89 08/08/22 16:00 Resp 16 08/08/22 16:00 BP 96/64 08/08/22 16:00 Pulse Ox 99 08/08/22 16:00 O2 Del Method 08/08/22 16:00 08/08/22 08/08/22 08/08/22 06:59 14:59 22:59 Intake Total 480 / 1518.75 1480 / 1480 50 / 1530 Balance 480 / 1518.75 1480 / 1480 50 / 1530 Weight last 48 hrs Weight 149.912 kg Physical Exam Narrative: She is more alert, able to better provide history, although he is somewhat sluggish, mildly slurred speech. Const: COMMON NORMALS: alert; negative for patient oriented x3 EXAM LIMITATIONS: altered mental status GENERAL APPEARANCE: cooperative and disheveled ORIENTATION/CONSCIOUSNESS: Yes awake and Yes confused HENMT: COMMON NORMALS: oropharynx normal HEAD & SCALP: other (Arthropod, possibly flea noted on right side of the scalp) MOUTH: other (Dry MM) Neck/C-Spine: COMMON NORMALS: no JVD Resp: COMMON NORMALS: normal respiratory effort and clear to auscultation bilaterally AUSCULTATION: clear to auscultation bilaterally Cardio: COMMON NORMALS: no JVD, regular rhythm, S1 normal heart sound present, S2 normal heart sound present and No murmurs present (Cardio) RHYTHM: regular rhythm HEART SOUNDS: S1 normal heart sound present and S2 normal heart sound present GI: COMMON NORMALS: Normal to inspection, nondistended, normoactive bowel sounds present, Soft to palpation and non-tender PALPATION: Yes Soft to palpation and Yes Tenderness to palpation present (GI) Extremity: COMMON NORMALS: no joint enlargement and no pedal edema Neuro: COMMON NORMALS: moves all extremities; negative for patient oriented x3 SENSORIUM/ORIENTATION: Yes alert COORDINATION/BALANCE: [id number] test normal (Slow) SPEECH: Other neuro speech findings (Mildly slurred speech) SENSORY EXAM: Yes extremities (Symmetrical) and Normal double simultaneous stimulation for sensation MOTOR EXAM: Pronator motor function not present COORDINATION: [id number] test normal (Slow) OTHER: She is awake and alert, follows directions readily but slowly. No facial droop. No difficulty tracking. Skin: NARRATIVE SKIN EXAM: Some excoriations noted on lower extremities. Data : 08/08/22 05:04 08/08/22 05:04 Micro: Microbiology 08/06/22 17:40 Urine Culture - Final Urine,Clean Catch Citrobacter farmeri 08/06/22 06:10 Blood Culture - Preliminary Blood NEGATIVE TO DATE A&P Assessment and plan (1) Acute encephalopathy: Overall improving, more alert, lucid, able to provide history, but occasionally momentary confusion, and also noted after restarting gabapentin some sluggishness, slurring of speech, as well as blood pressure softer. Discussed with her and her sister concern regarding gabapentin possibly contributing to her symptoms. She normally also takes even higher dose at home. Discussed concern regarding possibly worse hypotension, possibly contributing to her episode of weakness and collapse. Discussed, however, need to continue current dose for now, taper down gradually so as to avoid withdrawal, in fact possibly already had some withdrawal from gabapentin. With holding hydroxyzine as well. As she is having some improvement in oral intake, will attempt to discontinue IV fluids. Low folic acid, started replacement. Resistant organism in urine, Citrobacter for many resistant to ceftriaxone. Change antibiotic to Zosyn. Albumin is on the low side, but otherwise does not appear to have signs of cirrhosis necessarily. Platelets are in the low side as well 76,000. Spleen is unremarkable. No suggestion of hemolysis. Liver appearance unremarkable on CT. I do not see suggestion of cirrhosis currently. There was concern for alcohol use disorder. Asking her, she tells me she has had probably about 3 beers in the last 3 months. Sister states that she has been grieving and has not done well with grief, sounding elaborated on the phone nightly, and previously had seen beer cans lying in multiple locations on the floor at home. Sister is concerned that she is depressed. Hopefully her condition and mental status continues to improve. Again states drinks only occasionally, last beer several weeks ago. COVID-19 negative. Abdominal tenderness resolved. Findings of possible enterocolitis on CT, although he denies diarrhea, abdominal pain. Does have poor appetite. Monitor for any changes in symptoms. P.o. intake as tolerating. 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 States she took Humira for about a month, had some trouble trying to tell me why she was taking, but it appears that it may have been prescribed by a industry analyst, and it appears it was for hidradenitis suppurativa. (2) Generalized weakness: Replace folic acid. Encourage p.o. intake as tolerating. Will not increase gabapentin dose, consider additional de-escalation slowly with possible withdrawal. Hold hydroxyzine. PT, OT. Disposition planning. UTI with resistant organism. Change antibiotic to Zosyn. Follow-up blood culture. (3) Abdominal tenderness: Improved. Possible enterocolitis on CT. although states no diarrhea. Abdominal pain resolved. Oral intake improving. 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 Will need optimization of cardiovascular risk and follow-up. (4) Lactic acidosis: Acidosis resolved. Suspect secondary to severe dehydration, IV rehydration as above. (5) Dehydration: Received IV hydration. Stop IVF. Encourage oral intake. (6) Alcohol use disorder: Questionable. Chlordiazepoxide per [facility] protocol for withdrawal. Thiamine, folic acid, multivitamin. Once she is more coherent would benefit from additional discussion regarding concerns of alcohol use disorder. (7) Arthropod infestation: Requested identification, arthropod caught in specimen cupContinue admission for assessment of management of difficult to treat pneumonia with underlying malignancy with airway occlusion., appears likely flea, cannot exclude lice. Sister reports she has dogs at home. Contact isolation. Shower when able. Animals at home will need treatment. (8) Thrombocytopenia: Not entirely clear cause at this time, but would suspect bone marrow suppression secondary to EtOH as per concerns above. Cannot exclude hypersplenism. Possibly other causes. Additional assessment with CT abdomen pelvis. No suggestion of hemolysis. COVID-19 PCR negative. Follow-up blood counts. Plan Remote history of DVT PPM History of gastric bypass History of gastric perforation Hidradenitis suppurativa Hypothyroidism Attestations Medical Necessity Statement*: Continue admission for assessment management of acute encephalopathy, unclear etiology, possible withdrawal from alcohol or medication, generalized weakness, low blood pressure. Post discharge planning. 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
[2022-08-08] MEDS: piperacillin-tazobactam 3.375 GM in sodium chloride 0.9% (plus) 50 ML IV (20:42)
[2022-08-09] VITALS (7 sets, daily range): BP systolic 85–109; BP diastolic 54–73; PULSE 85–105; RESP 12–18; TEMP 36.4–37.9; O2SAT 93–98
[2022-08-09] MEDS: gabapentin 100 mg Capsule PO ×4 (01:20→20:49)
[2022-08-09] MEDS: piperacillin-tazobactam 3.375 GM in sodium chloride 0.9% (plus) 50 ML IV ×3 (04:49→20:49)
[2022-08-09 04:56] LABS: Basophils % 0.6 %; Eosinophils # 0.1 10^3/uL (0.0-0.8); Eosinophils % 2.2 %; Hematocrit 23.8 % (37.0-47.0); Hemoglobin 8.1 g/dL (11.5-15.3); Lymphocytes # 1.8 10^3/uL (0.8-4.8); Lymphocytes % 35.8 %; Mean Corpuscular Hemoglobin 32.8 pg (28.0-34.0); Mean Corpuscular Volume 96.4 fl (81-99); Mean Platelet Volume 10.8 fL (7.4-10.4); Monocytes # 0.4 10^3/uL (0.2-0.9); Monocytes % 8.3 %; Neutrophils # 2.65 10^3/uL (1.8-7.7); Neutrophils % 52.5 %; Nucleated Red Blood Cells % 0.8 %; Platelet Count 73 10^3/cmm (130-400); Red Blood Count 2.47 10^6/uL (4.1-5.3); Red Cell Distribution Width 12.3 % (12.1-15.1); White Blood Count 5.1 10^3/uL (4.0-10.0)
[2022-08-09 05:18] LABS: Alanine Aminotransferase 26 U/L (0-33); Albumin Level 2.4 g/dL (3.5-5.2); Alkaline Phosphatase 71 U/L (35-105); Anion Gap 11.6 (5-19); Aspartate Amino Transferase 32 U/L (0-32); Blood Urea Nitrogen 14 mg/dL (6-20); Calcium 8.3 mg/dL (8.5-10.5); Carbon Dioxide 26 mmol/L (22-29); Chloride 105 mmol/L (98-107); Globulin 2.3 g/dL (1.3-4.6); Glomerular Filtration Rate 74.2 mL/min (90-130); Glucose 81 mg/dL (65-115); Magnesium 1.7 mg/dL (1.7-2.3); Osmolality Calculated 288 mOsm/kg (285-295); Potassium 3.6 mmol/L (3.5-5.1); Sodium 139 mmol/L (136-145); Total Bilirubin 0.6 mg/dL (0.15-1.2); Total Protein 4.7 g/dL (6.6-8.7)
[2022-08-09] MEDS: levothyroxine 50 mcg Tablet PO (06:15)
[2022-08-09] MEDS: folic acid 1 mg Tablet PO (09:05)
[2022-08-09] MEDS: heparin 5,000 unit/mL INJ 1 mL 5000 UNIT SUBCUT ×2 (09:05→20:49)
[2022-08-09] MEDS: multivitamin therapeutic Tablet 1 TAB PO (09:05)
[2022-08-09] MEDS: thiamine 100 mg Tablet PO (09:05)
--- NOTE | 2022-08-09 13:46 | PM.PN ---
Subjective Subjective: She is feeling a little bit tired today. Discussed with her had a lower blood pressure this morning again 85/54. She otherwise states has had breakfast, has walked some with physical therapy. Vitals/I&O/Wt Last Vital Signs Temp 97.5 F L 08/09/22 12:00 Pulse 86 08/09/22 12:00 Resp 18 08/09/22 12:00 BP 101/66 08/09/22 12:00 Pulse Ox 97 08/09/22 12:00 O2 Del Method 08/09/22 12:00 08/08/22 08/09/22 08/09/22 22:59 06:59 14:59 Intake Total 1530 / 3010 500 / 3510 290 / 290 Balance 1530 / 3010 500 / 3510 290 / 290 Physical Exam Narrative: She is more alert, able to better provide history, although he is somewhat sluggish, mildly slurred speech. Const: COMMON NORMALS: alert; negative for patient oriented x3 EXAM LIMITATIONS: altered mental status GENERAL APPEARANCE: cooperative and disheveled ORIENTATION/CONSCIOUSNESS: Yes awake and Yes confused OTHER: More alert, able to provide better history and ROS, appears more energetic HENMT: COMMON NORMALS: oropharynx normal HEAD & SCALP: other (Arthropod, possibly flea noted on right side of the scalp) MOUTH: other (Dry MM) Neck/C-Spine: COMMON NORMALS: no JVD Resp: COMMON NORMALS: normal respiratory effort and clear to auscultation bilaterally AUSCULTATION: clear to auscultation bilaterally Cardio: COMMON NORMALS: no JVD, regular rhythm, S1 normal heart sound present, S2 normal heart sound present and No murmurs present (Cardio) RHYTHM: regular rhythm HEART SOUNDS: S1 normal heart sound present and S2 normal heart sound present GI: COMMON NORMALS: Normal to inspection, nondistended, normoactive bowel sounds present, Soft to palpation and non-tender PALPATION: Yes Soft to palpation and Yes Tenderness to palpation present (GI) Extremity: COMMON NORMALS: no joint enlargement and no pedal edema Neuro: COMMON NORMALS: moves all extremities; negative for patient oriented x3 SENSORIUM/ORIENTATION: Yes alert COORDINATION/BALANCE: [id number] test normal (Slow) SPEECH: Other neuro speech findings (Mildly slurred speech) SENSORY EXAM: Yes extremities (Symmetrical) and Normal double simultaneous stimulation for sensation MOTOR EXAM: Pronator motor function not present COORDINATION: [id number] test normal (Slow) OTHER: She is awake and alert, follows directions readily but slowly. No facial droop. No difficulty tracking. Skin: COMMON NORMALS: no rashes or lesions noted NARRATIVE SKIN EXAM: Some excoriations noted on lower extremities. GENERAL SKIN EXAM: no rashes or lesions noted Data : 08/09/22 04:12 08/09/22 04:12 Micro: Microbiology 08/06/22 17:40 Urine Culture - Final Urine,Clean Catch Citrobacter farmeri A&P Assessment and plan (1) Acute encephalopathy: This morning blood pressure lower again, and she is later noted to be also more somnolent. We are holding gabapentin entirely for now. We will check random serum cortisol. Check CRP. If blood pressure remains low, may need to restart IV fluid. Continue to biotic as changed to Zosyn due to multidrug-resistant Citrobacter UTI. Continue Fernández catheter placement. Overall improving, more alert, lucid, able to provide history, but occasionally momentary confusion, and also noted after restarting gabapentin some sluggishness, slurring of speech, as well as blood pressure softer. Discussed with her and her sister concern regarding gabapentin possibly contributing to her symptoms. She normally also takes even higher dose at home. Discussed concern regarding possibly worse hypotension, possibly contributing to her episode of weakness and collapse. Discussed, however, need to continue current dose for now, taper down gradually so as to avoid withdrawal, in fact possibly already had some withdrawal from gabapentin. With holding hydroxyzine as well. Albumin is on the low side, but otherwise does not appear to have signs of cirrhosis necessarily. Platelets are in the low side as well 76,000. Spleen is unremarkable. No suggestion of hemolysis. Liver appearance unremarkable on CT. I do not see suggestion of cirrhosis currently. There was concern for alcohol use disorder. Asking her, she tells me she has had probably about 3 beers in the last 3 months. Sister states that she has been grieving and has not done well with grief, sounding elaborated on the phone nightly, and previously had seen beer cans lying in multiple locations on the floor at home. Sister is concerned that she is depressed. Hopefully her condition and mental status continues to improve. Again states drinks only occasionally, last beer several weeks ago. COVID-19 negative. Abdominal tenderness resolved. Findings of possible enterocolitis on CT, although he denies diarrhea, abdominal pain. Does have poor appetite. Monitor for any changes in symptoms. P.o. intake as tolerating. 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 States she took Humira for about a month, had some trouble trying to tell me why she was taking, but it appears that it may have been prescribed by a hide mill man, and it appears it was for hidradenitis suppurativa. (2) Generalized weakness: Check serum cortisol. CRP. Replace deficient folic acid. Gabapentin held for now. Treat multidrug-resistant UTI. Encourage p.o. intake as tolerating. Hold hydroxyzine. Continue mobilization, therapy. (3) Abdominal tenderness: Improved. Possible enterocolitis on CT. although states no diarrhea. Abdominal pain resolved. Oral intake improving. 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 Will need optimization of cardiovascular risk and follow-up. (4) Lactic acidosis: Acidosis resolved. Suspect secondary to severe dehydration, IV rehydration as above. (5) Dehydration: Received IV hydration. Encourage oral intake. (6) Alcohol use disorder: Questionable. Chlordiazepoxide per [facility] protocol for withdrawal. Thiamine, folic acid, multivitamin. Once she is more coherent would benefit from additional discussion regarding concerns of alcohol use disorder. (7) Arthropod infestation: Requested identification, arthropod caught in specimen cupContinue admission for assessment of management of difficult to treat pneumonia with underlying malignancy with airway occlusion., appears likely flea, cannot exclude lice. Sister reports she has dogs at home. Contact isolation. Shower when able. Animals at home will need treatment. Has made plans for fumigation of her home from fleas while she will be staying at her sisters. (8) Thrombocytopenia: Not entirely clear cause at this time, but would suspect bone marrow suppression secondary to EtOH as per concerns above. Cannot exclude hypersplenism. Possibly other causes. Additional assessment with CT abdomen pelvis. No suggestion of hemolysis. COVID-19 PCR negative. Follow-up blood counts. Plan Remote history of DVT PPM History of gastric bypass History of gastric perforation Hidradenitis suppurativa Hypothyroidism Attestations Medical Necessity Statement*: Continue admission for assessment management of acute encephalopathy, neurolysed weakness, hypotension. Coding Level of Care Code Acute [place] [facility] Fwd Diagnoses Acute encephalopathy G93.40 Generalized weakness R53.1 Abdominal tenderness R10.819 Lactic acidosis E87.20 Dehydration E86.0 Alcohol use disorder Arthropod infestation B88.2 Thrombocytopenia D69.6
[2022-08-09 14:13] LABS: C Reactive Protein 4.3 mg/L (0.0-4.9)
[2022-08-09 14:23] LABS: Cortisol Random 5.05 ug/dL (2.47-19.5)
[2022-08-10] VITALS: BP 137/79; PULSE 62; RESP 16; TEMP 36.2; O2SAT 95
[2022-08-10 03:19] VITALS: BP 113/79; PULSE 104; RESP 16; TEMP 36.5; O2SAT 94
[2022-08-10] MEDS: piperacillin-tazobactam 3.375 GM in sodium chloride 0.9% (plus) 50 ML IV (04:38)
[2022-08-10] MEDS: gabapentin 100 mg Capsule PO ×3 (04:39→13:12)
[2022-08-10] MEDS: levothyroxine 50 mcg Tablet PO (04:39)
[2022-08-10 05:05] LABS: Basophils # 0.1 10^3/uL (0.0-0.1); Eosinophils # 0.1 10^3/uL (0.0-0.8); Eosinophils % 2.3 %; Hematocrit 25.7 % (37.0-47.0); Hemoglobin 8.7 g/dL (11.5-15.3); Lymphocytes # 1.7 10^3/uL (0.8-4.8); Lymphocytes % 32.3 %; Mean Corpuscular HGB Conc 33.9 g/dL (30.0-36.0); Mean Corpuscular Hemoglobin 33.1 pg (28.0-34.0); Mean Corpuscular Volume 97.7 fl (81-99); Monocytes # 0.6 10^3/uL (0.2-0.9); Monocytes % 11.5 %; Neutrophils # 2.75 10^3/uL (1.8-7.7); Neutrophils % 52.3 %; Nucleated Red Blood Cells % 0.8 %; Platelet Count 91 10^3/cmm (130-400); Red Blood Count 2.63 10^6/uL (4.1-5.3); Red Cell Distribution Width 12.5 % (12.1-15.1); White Blood Count 5.2 10^3/uL (4.0-10.0)
[2022-08-10 05:29] LABS: Alanine Aminotransferase 33 U/L (0-33); Albumin Level 2.5 g/dL (3.5-5.2); Alkaline Phosphatase 85 U/L (35-105); Anion Gap 11.4 (5-19); Aspartate Amino Transferase 41 U/L (0-32); Blood Urea Nitrogen 10 mg/dL (6-20); Calcium 8.4 mg/dL (8.5-10.5); Carbon Dioxide 27 mmol/L (22-29); Chloride 104 mmol/L (98-107); Globulin 2.4 g/dL (1.3-4.6); Glomerular Filtration Rate 74.2 mL/min (90-130); Glucose 100 mg/dL (65-115); Osmolality Calculated 287 mOsm/kg (285-295); Potassium 3.4 mmol/L (3.5-5.1); Sodium 139 mmol/L (136-145); Total Bilirubin 0.6 mg/dL (0.15-1.2); Total Protein 4.9 g/dL (6.6-8.7)
[2022-08-10 06:00] VITALS: PULSE 84
[2022-08-10 08:00] VITALS: BP 120/68; PULSE 76; RESP 17; TEMP 36.6; O2SAT 95
[2022-08-10] MEDS: multivitamin therapeutic Tablet 1 TAB PO (09:07)
[2022-08-10] MEDS: folic acid 1 mg Tablet PO (09:07)
[2022-08-10] MEDS: heparin 5,000 unit/mL INJ 1 mL 5000 UNIT SUBCUT (09:07)
[2022-08-10] MEDS: thiamine 100 mg Tablet PO (09:08)
[2022-08-10 12:00] VITALS: BP 130/64; PULSE 74; RESP 18; TEMP 36.7; O2SAT 94
--- NOTE | 2022-08-10 12:15 | PC.SOCIAL ---
IMM Update pg 2 of IMM updated and reviewed w/ patient. Copy provided and Copy dated, initialed and placed in chart.
[2022-08-10] MEDS: potassium chloride ER 20 mEq Tablet 40 MEQ PO (13:12)
--- NOTE | 2022-08-10 16:17 | PM.DCS ---
Discharge Providers Date of Admission: 08/07/22 08:26 Date of Discharge: August 10, 2022 Attending Provider at Admission: Ifeanyi Nguyen Attending Provider at Discharge: Ifeanyi Nguyen Primary Care Provider: Amita Hartley Diagnoses at Discharge Discharge Diagnosis (1) Acute encephalopathy: Status: Acute (2) Generalized weakness: Status: Acute (3) Abdominal tenderness: Status: Acute (4) Lactic acidosis: Status: Acute (5) Dehydration: Status: Acute (6) Alcohol use disorder: Status: Acute (7) Arthropod infestation: Status: Acute (8) Thrombocytopenia: Status: Acute Reason for Visit Reason for Visit: Neuro Hospital Course Hospital Course Pleasant 57-year-old lady with history of gastric bypass, remote history of DVT, hidradenitis suppurativa, pacemaker, hypothyroidism, was admitted with altered mental status, generalized weakness, dehydration, slurred speech, found down at home for an unknown duration of time, with acute encephalopathy of unclear etiology, with unremarkable CT of the head, negative COVID PCR, chest x-ray necessary of pneumonia, UA necessary UTI, with metabolic acidosis on presentation, lactic acidosis, without suggestion of ketoacidosis, with reported concern for possible alcohol use disorder reported by her sister concern due to intermittently sounding intoxicated over the phone, some beer cans noted in the apartment, treated for possible alcohol withdrawal with Librium, CIWA protocol, received thiamine, folic acid, multivitamin. On Humira in the past, although without signs of acute infection. Received IV hydration, with improvement in metabolic acidosis, mental status, dehydration resolved. Initially poor oral intake. On presentation due to metabolic acidosis, abdominal tenderness additionally imaged with CT abdomen pelvis with finding of fluid in small bowel with some left colon wall thickening possible enterocolitis, incidentally noted celiac artery 50% proximal narrowing secondary to noncalcified atherosclerotic plaque with contrast seen distally, in addition noted bilateral proximal renal artery about 50% narrowing secondary to calcified atherosclerotic plaque. L1 vertebroplasty, L2 vertebral body hemangioma, gastric surgical sutures, left lower lobe atelectasis, pacemaker, cholelithiasis. Noted to have some thrombocytopenia, initially thought possibly toxic effect of EtOH. With improvement in mental status she was able to tell us she has no longer been on Humira. Denied any significant alcohol consumption, stating his head may be about 3 beers in the last several months, last several weeks ago. Noted to have soft blood pressures, especially with resumption even at lower dose of gabapentin. At home on much higher dose of gabapentin, and also was taking hydroxyzine. Concern is for medication effect causing low blood pressures, as well as I suspect may have contributed to her sounding like she is intoxicated and with significant hypotension, dehydration likely contributed to her collapse and weakness. Her gabapentin was intermittently withheld, dose decreased to 100 mg twice daily. Did have some symptoms of possible withdrawal, still not entirely clear whether alcohol is not an issue, however, did improve with Librium and supportive care. Initially generally very weak, barely able to stand up at the bedside. However, with rehydration, improvement in appetite, mobilization with therapy has improved, and has been doing better currently mobile with contact-guard assist. Also noted to have folic acid deficiency for which he started on replacement. She otherwise does not appear to have signs of cirrhosis. CRP also not elevated. Thyroid function WNL. B12 normal. CK not elevated. Please reassess further regarding additional possible deficiencies given history of gastric bypass, poor oral intake, please follow-up other vitamins and micronutrients including iron studies, vitamin D, A, zinc, copper and ceruloplasmin, selenium, vitamin K. There was no suggestion of hemolysis. Thrombocytopenia may have also been related to acute infection with UTI, or possibly folic acid deficiency. Thrombocytopenia appears to be improving, platelets up to 91,000. Although with weakness, possible risk of falling, still lower platelets, for now Xarelto is held until follow-up. Please follow-up levels for continued improvement. Consider if still needs to resume Xarelto. With mesenteric and renal atherosclerosis and stenosis, she started on statin, please continue to assist her with optimization of cardiovascular risk factors. May be at risk of progression of cardiovascular disease. May be at risk of chronic bowel ischemia in the future. Currently does not appear to have symptoms, although appetite is not the best, but has been doing well with her meals here and has had no recurrence of abdominal pain or tenderness. No diarrhea or bloody stools. On presentation also was noted to have urinary tract infection, with urine eventually growing multidrug-resistant Citrobacter farmeri. Antibiotic initially switched to Zosyn while in the hospital, due to multiple antibiotic resistances and allergies will complete with nitrofurantoin after discharge. On admission incidentally found to have an arthropod on her, appeared to be like a flea, but cannot exclude louse or other. She is reported to have dogs at home by her sister which was confirmed by her later with resolution of encephalopathy. It was sent for identification, although is not back yet, appears may have gone to pathology. I do suspect it was a flea, and she is planning to treat her dogs and home while she will be staying a while with her sister after discharge. Physical Exam Narrative: She is asleep, wakes up easily. Pleasant, conversant. Const: COMMON NORMALS: patient oriented x3 and alert EXAM LIMITATIONS: altered mental status GENERAL APPEARANCE: cooperative and disheveled ORIENTATION/CONSCIOUSNESS: Yes awake and Yes confused OTHER: Able to provide better history and ROS. Improving in strength. HENMT: COMMON NORMALS: oropharynx normal Neck/C-Spine: COMMON NORMALS: no JVD Resp: COMMON NORMALS: normal respiratory effort and clear to auscultation bilaterally AUSCULTATION: clear to auscultation bilaterally Cardio: COMMON NORMALS: no JVD, regular rhythm, S1 normal heart sound present, S2 normal heart sound present and No murmurs present (Cardio) RHYTHM: regular rhythm HEART SOUNDS: S1 normal heart sound present and S2 normal heart sound present GI: COMMON NORMALS: Normal to inspection, nondistended, normoactive bowel sounds present, Soft to palpation and non-tender PALPATION: Yes Soft to palpation and Yes Tenderness to palpation present (GI) Extremity: COMMON NORMALS: no joint enlargement and no pedal edema Neuro: COMMON NORMALS: patient oriented x3 and moves all extremities SENSORIUM/ORIENTATION: Yes alert Skin: COMMON NORMALS: no rashes or lesions noted GENERAL SKIN EXAM: no rashes or lesions noted Discharge Data Studies Completed and Pending Completed Studies During Hospitalization Category Date Time Status CT head wo con* [id number] Stat Cat Scan 08/06/22 13:57 Completed CTA abdomen pelvis [CT angio abdomen pelvis [id number]] Stat Cat Scan 08/06/22 18:21 Completed XR chest 1V portable [id number] Stat Exams 08/06/22 13:57 Completed XR pelvis 1-2V* [id number] Stat Exams 08/06/22 14:59 Completed Pending at discharge Category Date Time Status Blood Culture Stat Lab 08/06/22 06:10 Results Radiology Impressions Chest X-Ray 08/06/22 13:57 IMPRESSION: Unremarkable portable chest. Head CT 08/06/22 13:57 IMPRESSION: 1. No acute intracranial hemorrhage or edema. 2. Mild cerebral atrophy. Similar to the prior study. 3. No skull fracture. Pelvis X-Ray 08/06/22 14:59 IMPRESSION: Negative pelvis. Abdomen/Pelvis CTA 08/06/22 18:21 IMPRESSION: 1. Prominent fluid in the small bowel along with some left colon wall thickening may reflect an enterocolitis in the appropriate clinical setting. 2. Celiac artery proximally demonstrates 50% narrowing secondary to noncalcified atherosclerotic plaque with contrast seen distally. 3. Bilateral proximal renal artery approximately 50% narrowing secondary to calcified atherosclerotic plaque. 4. L1 vertebroplasty changes. 5. L2 vertebral body hemangioma appears benign. 6. Gastric surgical sutures. 7. Left lower lobe atelectasis. 8. Pacemaker. 9. Cholelithiasis. Laboratory Results WBC 5.2 10^3/uL (4.0-10.0) 08/10/22 04:39 RBC 2.63 10^6/uL (4.1-5.3) L 08/10/22 04:39 Hgb 8.7 g/dL (11.5-15.3) L 08/10/22 04:39 Hct 25.7 % (37.0-47.0) L 08/10/22 04:39 MCV 97.7 fl (81-99) 08/10/22 04:39 MCH 33.1 pg (28.0-34.0) 08/10/22 04:39 MCHC 33.9 g/dL (30.0-36.0) 08/10/22 04:39 RDW 12.5 % (12.1-15.1) 08/10/22 04:39 Plt Count 91 10^3/cmm (130-400) L 08/10/22 04:39 MPV 11.0 fL (7.4-10.4) H 08/10/22 04:39 Neut % (Auto) 52.3 % 08/10/22 04:39 Lymph % (Auto) 32.3 % 08/10/22 04:39 [place] % (Auto) 11.5 % 08/10/22 04:39 Eos % (Auto) 2.3 % 08/10/22 04:39 Baso % (Auto) 1.0 % 08/10/22 04:39 Reticulocyte % (Auto) 0.9 % (0.5-2.0) 08/07/22 06:10 Neut # (Auto) 2.75 10^3/uL (1.8-7.7) 08/10/22 04:39 Lymph # (Auto) 1.7 10^3/uL (0.8-4.8) 08/10/22 04:39 [place] # (Auto) 0.6 10^3/uL (0.2-0.9) 08/10/22 04:39 Eos # (Auto) 0.1 10^3/uL (0.0-0.8) 08/10/22 04:39 Baso # (Auto) 0.1 10^3/uL (0.0-0.1) 08/10/22 04:39 Nucleated RBC % (auto) 0.8 % 08/10/22 04:39 Nucleated RBCs # 0.0 /100WBC 08/10/22 04:39 Retic Production Index 0.61 08/07/22 06:10 Haptoglobin 121.0 mg/L (30-200) 08/07/22 06:10 PT 14.90 SECONDS (12.1-14.9) 08/06/22 14:07 INR 1.13 (0.8-1.2) 08/06/22 14:07 Sodium 139 mmol/L (136-145) 08/10/22 04:39 Potassium 3.4 mmol/L (3.5-5.1) L 08/10/22 04:39 Chloride 104 mmol/L (98-107) 08/10/22 04:39 Carbon Dioxide 27 mmol/L (22-29) 08/10/22 04:39 Anion Gap 11.4 (5-19) 08/10/22 04:39 BUN 10 mg/dL (6-20) 08/10/22 04:39 Creatinine 0.8 mg/dL (0.5-0.9) 08/10/22 04:39 GFR Calculation 74.2 mL/min (90-130) L 08/10/22 04:39 Glucose 100 mg/dL (65-115) 08/10/22 04:39 Calculated Osmolality 287 mOsm/kg (285-295) 08/10/22 04:39 Lactic Acid 2.4 mmol/L (0.5-2.2) H 08/06/22 14:07 Lactic Acid (Sepsis) 2.4 mmol/L (0.5-2.2) H 08/06/22 16:23 Calcium 8.4 mg/dL (8.5-10.5) L 08/10/22 04:39 Magnesium 1.7 mg/dL (1.7-2.3) 08/09/22 04:12 Total Bilirubin 0.6 mg/dL (0.15-1.2) 08/10/22 04:39 AST 41 U/L (0-32) H 08/10/22 04:39 ALT 33 U/L (0-33) 08/10/22 04:39 Alkaline Phosphatase 85 U/L (35-105) 08/10/22 04:39 Ammonia 16 umol/L (11-51) 08/07/22 06:10 Lactate Dehydrogenase 164 U/L (135-214) 08/07/22 06:10 Creatine Kinase 67 U/L (26-192) 08/06/22 14:07 Troponin T Baseline 12 ng/L (0-10) H 08/06/22 14:07 Troponin T 120 Minute 11.95 ng/L (0-10) H 08/06/22 16:23 Delta Troponin T -0.05 ABS# (0-10) L 08/06/22 16:23 Troponin T Hi Sens 6Hr 12.18 ng/L (0-10) H 08/06/22 19:54 Troponin T Hi Sens 6Hr Delta 0.18 ng/L (0-12) 08/06/22 19:54 C-Reactive Protein 4.3 mg/L (0.0-4.9) 08/09/22 04:12 Total Protein 4.9 g/dL (6.6-8.7) L 08/10/22 04:39 Albumin 2.5 g/dL (3.5-5.2) L 08/10/22 04:39 Globulin 2.4 g/dL (1.3-4.6) 08/10/22 04:39 Lipase 24 U/L (13-60) 08/06/22 14:07 Vitamin B12 957 pg/mL (232-1245) 08/07/22 06:10 Folate 4.3 ng/mL (4.8-37.3) L 08/07/22 06:10 TSH 2.75 uIU/mL (0.27-4.20) 08/06/22 14:07 Free T4 1.21 ng/dL (0.82-1.77) 08/06/22 14:07 Random Cortisol 5.05 ug/dL (2.47-19.5) 08/09/22 04:12 Urine Color Yellow (Yellow) 08/06/22 17:40 Urine Appearance Cloudy (CLEAR) A 08/06/22 17:40 Urine pH 6 (5-7) 08/06/22 17:40 Ur Specific [place] 1.020 (1.005-1.030) 08/06/22 17:40 Urine Protein 1+ (Negative) H 08/06/22 17:40 Urine Glucose (UA) Norm (Normal) 08/06/22 17:40 Urine Ketones 1+ (Negative) H 08/06/22 17:40 Urine Blood 3+ (Negative) H 08/06/22 17:40 Urine Nitrate Negative (Negative) 08/06/22 17:40 Urine Bilirubin 2+ (Negative) H 08/06/22 17:40 Urine Urobilinogen 4 mg/dL (Negative) H 08/06/22 17:40 Ur Leukocyte Esterase 1+ (Negative) H 08/06/22 17:40 Urine RBC 0-4 /hpf (0-2) H 08/06/22 17:40 Urine WBC 0-4 /hpf (0-5) H 08/06/22 17:40 Ur Squamous Epith Cells 0-4 /hpf (0-5) H 08/06/22 17:40 Amorphous Sediment Not Reportable 08/06/22 17:40 Urine Bacteria 4+ /hpf (NONE) H 08/06/22 17:40 Salicylates < 0.3 mg/dL (3-10) L 08/06/22 14:07 Acetaminophen < 5.0 ug/mL (10-30) L 08/06/22 14:07 Ethyl Alcohol < 10 mg/dL (0-10) 08/06/22 14:07 Coronavirus 229E (PCR) Not detected (NOT DETECT) 08/06/22 18:52 SARS-CoV-2 (PCR) Not detected (NOT DETECT) 08/06/22 18:52 Tick Identification Cancelled 08/07/22 03:00 Vitals Last Vital Signs Temp 98.0 F 08/10/22 12:00 Pulse 74 08/10/22 12:00 Resp 18 08/10/22 12:00 BP 130/64 08/10/22 12:00 Pulse Ox 94 08/10/22 12:00 O2 Del Method 08/10/22 12:00 Discharge Plan Discharge Patient Disposition: Home Condition: Stable Prescriptions: New atorvastatin 40 mg tablet 40 mg PO QPM Qty: 90 0RF folic acid 1 mg Tablet 1 mg PO DAILY Qty: 90 0RF Vitamin B-1 (mononitrate) 100 mg Tablet 100 mg PO DAILY Qty: 90 0RF Thera 400 mcg Tablet 1 tab PO DAILY Qty: 90 0RF nitrofurantoin macrocrystal 50 mg capsule 50 mg PO Q6H 5 Days Qty: 20 0RF Rx Instructions: must administer with a meal/food gabapentin 100 mg capsule 100 mg PO BID Qty: 60 0RF Continued levothyroxine 50 mcg tablet 50 mcg PO QAM Held Xarelto 20 mg tablet 20 mg PO QPM Hold Instructions: Resume on 08/24/22. Discontinued gabapentin 300 mg capsule 300 mg PO Q4H hydroxyzine pamoate 50 mg capsule 50 mg PO Q4H PRN (Reason: Anxiety) Humira(CF) Pen 80 mg/0.8 mL Pen Injector Kit See Rx Instructions .ROUTE .COMPLEX Rx Instructions: 160 mg subcutaneously starting dose 06/05/22 then 80mg on day 15 (06/20/22) then every week there after Discharge Orders: Discharge Order (Routine); Ordered 08/10/22 Ordered By: Ifeanyi Nguyen Other Ambulatory Orders: DME: [employer] (Order) Timeframe: 1 Day Location: None Selected Ordered By: Ifeanyi Nguyen Referrals: Amita Hartley FNP [Primary Care Provider] - 4-7 days (Please call [facility] Thursday morning to schedule a hospital follow up appointment within 1 week.) Discharge Diet: Regular and Low Cholesterol Discharge Activity: Increase activity as tolerated and As per PT/OT instructions Patient Instructions: Nitrofurantoin (By mouth), Urinary Tract Infection in Women (GEN), Hypotension (GEN), Fall Prevention (GEN), Nutrition after Bariatric Surgery (GEN), Prevent Cardiovascular Disease (GEN) Activity Restrictions/Additional Instructions: Due to low blood pressures and possible contribution to altered mental status please discontinue hydroxyzine. Gabapentin dose is decreased to 100 mg twice daily. Please follow-up with your primary doctor for reassessment of blood pressure. Monitor blood pressure laying, sitting and standing, write down values to bring to your appointment. Avoid dehydration. Maintain orthostatic precautions - in case you get lightheaded, sit down or lie down immediately. Avoid alcohol. Discuss with your primary doctor regarding narrowing of mesenteric artery supplying your intestine to 50%. Let your doctor know in case you develop any symptoms of pain with eating, aversion to food, unintended weight loss. Discussed also renal artery narrowing to 50% on both sides with calcified atherosclerotic plaque. Follow-up with your primary doctor for continued improvement of cardiovascular risk factors. You are started on statin. Continue folic acid for replacement of folic acid deficiency. B12 level is normal. Follow-up with your primary doctor for assessment of other vitamins and micronutrient deficiencies including iron studies, vitamin D, A, zinc, copper and ceruloplasmin, selenium, vitamin K. Complete course of treatment for urinary tract infection with nitrofurantoin. Hold Xarelto for now, revisit with your primary doctor regarding resuming it. Please have your primary doctor recheck your platelet count levels to make sure they are continuing to improve. Arrange treatment for fleas at home and of the dogs. Discussed with your primary doctor incidentally seen gallstones. Maintain low-cholesterol diet. Discharge Attestations Time Spent in Discharge Care*: greater than 30 min Quality Metrics Clinical Quality Measures [ No reported AMI, CVA or VTE this stay] Coding Level of Care Code Acute [facility] note Diagnoses Acute encephalopathy G93.40 Generalized weakness R53.1 Abdominal tenderness R10.819 Lactic acidosis E87.20 Dehydration E86.0 Alcohol use disorder Arthropod infestation B88.2 Thrombocytopenia D69.6
== END 2022-08-10 16:00 | disposition home health service (06) | DRG 689 ==
LOC: ER 17:09 → MEDSURG 08-07 01:54
PROVIDERS: Admitting Provider Internal Medicine; Emergency Provider Emergency Medicine; PCP Nurse Practitioner Family; Visit Provider Internal Medicine
DX: N39.0 Urinary tract infection, site not specified (principal); G93.41 Metabolic encephalopathy; Z16.342 Resistance to multiple antimycobacterial drugs; F10.939 Alcohol use, unspecified with withdrawal, unspecified; E87.20 Acidosis, unspecified; K55.1 Chronic vascular disorders of intestine; B96.89 Other specified bacterial agents as the cause of diseases classified elsewhere; Z95.0 Presence of cardiac pacemaker; E86.0 Dehydration; Z86.718 Personal history of other venous thrombosis and embolism; E03.9 Hypothyroidism, unspecified; Z98.84 Bariatric surgery status; Z87.891 Personal history of nicotine dependence; D69.6 Thrombocytopenia, unspecified; B88.2 Other arthropod infestations; I95.9 Hypotension, unspecified; E53.8 Deficiency of other specified B group vitamins
CPT/HCPCS: 36415; 70450; 71045; 72170; 74174; 80053; 80307; 81001; 82140; 82533; 82550; 82607; 82746; 83010; 83605; 83615; 83690; 83735; 84439; 84443; 84484; 85014; 85025; 85045; 85610; 86140; 87040; 87086; 87186; 87635; 88300; 93005; 96365; 96367; 96372; 97110; 97116; 97161; 97166; 97530; 99285; J0692; J0696; J1644; J2543; J3370; J3411; J7040; J7050; Q9967